=== PATIENT | male | born 1965 | race Caucasian/White ===

== ENCOUNTER 2016-06-17 16:59 | Emergency (ER) | payer OTHER ==
[2016-06-17 17:05] VITALS: BP 125/67; PULSE 55; TEMP 97.8
--- NOTE | 2016-06-17 18:06 | PDOC ---
History of Present Illness - General Chief Complaint: Cold Symptoms Stated Complaint: PAIN Time Seen by Provider: 06/17/16 17:53 History Source: Patient Exam Limitations: No Limitations - History of Present Illness Initial Comments: CHIEF COMPLAINT: 50 y/o afebrile male c/o b/l eye itching and discharge for the past 2 days. HISTORY OF PRESENT ILLNESS: The patient states he has woken up with his eyes stuck shut for the past 2 days with yellow crusting. He also admits to nasal congestion. He denies f/c, n/v/d, CP, SOB, abd pain. The patient has been cleaning his eyes with warm compresses. Vital signs on arrival are within normal limits. REVIEW OF SYSTEMS: GENERAL/CONSTITUTIONAL: No fever/chills. No weakness. No weight change. HEAD, EYES, EARS, NOSE AND THROAT: No change in vision. No ear pain or discharge. No sore throat. +eye itching and yellow discharge. +nasal congestion. GENITOURINARY: No dysuria, frequency, or change in urination. MUSCULOSKELETAL: No joint or muscle swelling or pain. No neck or back pain. SKIN: No rash or easy bruising. PHYSICAL EXAM: GENERAL: The patient is awake, alert, and fully oriented, in no acute distress. He is well appearing, ambulatory. HEAD: Normal with no signs of trauma. ENT: Pupils equal, round and reactive to light, extraocular movements intact, sclera anicteric. Conjunctiva injected b/l. No discharge on lid margins currently. Nasal congestion LUNGS: Clear to auscultation bilaterally. Normal excursion. No respiratory distress or use of accessory muscles. EXTREMITIES: Normal range of motion, no edema. NEUROLOGICAL: Normal speech, normal gait. CN II-XII grossly intact. PSYCH: Normal mood, normal affect. SKIN: Warm, dry, normal turgor, no rashes or lesions noted. Past History - Past Medical History Allergies/Adverse Reactions: Allergies Allergy/AdvReac Type Severity Reaction Status Date / Time No Known Allergies Allergy Verified 06/17/16 17:02 Home Medications: Ambulatory Orders Albuterol Sulfate Inhaler - [Ventolin HFA Inhaler -] 2 inh PO Q4H PRN 01/06/14 Methadone [Dolophine -] 130 mg PO DAILY 01/06/14 Albuterol Sulfate Inhaler - [Ventolin HFA Inhaler -] 2 inh IH Q4H PRN #1 inh Amlodipine Besylate [Norvasc -] 5 mg PO DAILY #30 tablet 02/02/14 Fluoxetine HCl 20 mg PO DAILY #30 tablet 02/02/14 Erythromycin 0.5% Eye Ointment [Erythromycin 0.5% Eye Ointment -] 1 applic OU TID #1 tube 06/17/16 Anemia: No Asthma: No Cancer: No Cardiac Disorders: No CVA: No COPD: No CHF: No Dementia: No Diabetes: No GI Disorders: No Disorders: No HTN: Yes Hypercholesterolemia: No Kidney Stones: No Liver Disease: No Psychiatric Problems: Yes (SCHIZOPHERNIA) Suicide Attempt (Hx): No Seizures: No Thyroid Disease: No - Surgical History Abdominal Surgery: No Appendectomy: No Cardiac Surgery: No Cholecystectomy: No Lung Surgery: No Neurologic Surgery: No Orthopedic Surgery: No - Reproductive History Testicular Surgery: No - Psycho/Social/Smoking Cessation Hx Anxiety: No Suicidal Ideation: No Smoking Status: Yes Smoking History: Never smoked Have you smoked in the past 12 months: No Number of Cigarettes Smoked Daily: 20 Cigars Per Day: 0 Information on smoking cessation initiated: No 'Breaking Loose' booklet given: 01/06/14 Hx Alcohol Use: No Drug/Substance Use Hx: No Substance Use Type: Cocaine, Heroin Hx Substance Use Treatment: No *Physical Exam - Vital Signs Last Vital Signs Temp Pulse Resp BP Pulse Ox 97.8 F 55 L 18 125/67 100 06/17/16 17:03 06/17/16 17:03 06/17/16 17:03 06/17/16 17:03 06/17/16 17:03 Medical Decision Making - Medical Decision Making A/P: 50 y/o afebrile male with b/l conjunctivitis. Will treat with erythromycin ointment. Instructed him to use as prescribed for 1 week. Suggested he take an OTC allergy medicine for his nasal congestion and f/u with his doctor within 1 week. The patient verbalizes understanding of all instructions, has no further questions and is awaiting discharge. *DC/Admit/Observation/Transfer Diagnosis at time of Disposition: Nasal congestion Conjunctivitis Qualifiers: Conjunctivitis type: acute Acute conjunctivitis type: bacterial Laterality: bilateral Qualified Code(s): H10.33 - Unspecified acute conjunctivitis, bilateral - Discharge Dispostion Disposition: HOME Condition at time of disposition: Good - Prescriptions Prescriptions: Erythromycin 0.5% Eye Ointment [Erythromycin 0.5% Eye Ointment -] 1 applic OU TID #1 tube - Referrals Referrals: Donavon Yañez [Primary Care Provider] - Call tomorrow - Patient Instructions Printed Discharge Instructions: DI for Conjunctivitis, DI for Nasal Congestion Additional Instructions: Discharge Instructions: -Use eye ointment as prescribed -Take over the counter allergy medicine for nasal congestion -Sit up to sleep to help with nasal congestion -Follow up with your doctor tomorrow -Return to the ER with any worsening or concerning symptoms. Print Language: VIETNAMESE
== END 2016-06-17 18:13 | disposition home or self-care (01) ==
LOC: JERFT 16:59
DX: H10.33 Unspecified acute conjunctivitis, bilateral (principal); I10 Essential (primary) hypertension; F20.0 Paranoid schizophrenia
CPT/HCPCS: 99281-25

== ENCOUNTER 2017-11-10 11:00 | Inpatient (IN) | payer OTHER ==
[2017-11-10 11:38] VITALS: BMI 24.3
--- NOTE | 2017-11-10 12:59 | HP ---
CIWA Score - CIWA Score Nausea/Vomitin-Mild Nausea/No Vomiting Muscle Tremors: 4-Moderate,w/Arms Extend Anxiety: 4-Mod. Anxious/Guarded Agitation: 4-Moderately Restless Paroxysmal Sweats: 1-Minimal Palms Moist Orientation: 1-Uncertain about Date Tacttile Disturbances: 1-Very Mild Itch/Numbness Auditory Disturbances: 0-None Visual Disturbances: 0-None Headache: 0-None Present CIWA-Ar Total Score: 16 Admission ROS BHS - HPI Chief Complaint: alcohol withdrawal sx Allergies/Adverse Reactions: Allergies Allergy/AdvReac Type Severity Reaction Status Date / Time No Known Allergies Allergy Verified 06/17/16 17:02 History of Present Illness: 52 years old male with long history of alcohol nicotine dependence has hypertension asthma bph methadone 60 mg po riri schizophrenia is admitted to detox Exam Limitations: No Limitations - Ebola screening Have you traveled outside of the country in the last 21 days: No Have you had contact with anyone from an Ebola affected area: No Have you been sick,other than usual withdrawal symptoms: No Do you have a fever: No - Review of Systems Constitutional: Changes in sleep, Weight Stable EENT: reports: Blurred Vision (eye glasses) Respiratory: reports: No Symptoms reported Cardiac: reports: No Symptoms Reported GI: reports: Nausea, Poor Fluid Intake, Abdominal cramping : reports: Frequency Musculoskeletal: reports: No Symptoms Reported Integumentary: reports: Change in Color (chest wall) Neuro: reports: Tremors Endocrine: reports: No Symptoms Reported Hematology: reports: No Symptoms Reported Psychiatric: reports: Judgement Intact, Depressed Other Systems: Reviewed and Negative Patient History - Patient Medical History Hx Anemia: No Hx Asthma: Yes Hx Chronic Obstructive Pulmonary Disease (COPD): No Hx Cancer: No Hx Cardiac Disorders: No Hx Congestive Heart Failure: No Hx Hypertension: Yes (NON COMPLIANT) Hx Hypercholesterolemia: No Hx Pacemaker: No HX Cerebrovascular Accident: No Hx Seizures: No Hx Dementia: No Hx Diabetes: No Hx Gastrointestinal Disorders: No Hx Liver Disease: No Hx Genitourinary Disorders: Yes Hx Sexually Transmitted Disorders: No Hx Renal Disease (ESRD): No Hx Thyroid Disease: No Hx Human Immunodeficiency Virus (HIV): No (negative in november 2013) Hx Hepatitis C: Yes Hx Depression: No Hx Suicide Attempt: No Hx Bipolar Disorder: No Hx Schizophrenia: Yes - Patient Surgical History Past Surgical History: No Hx Neurologic Surgery: No Hx Cataract Extraction: No Hx Cardiac Surgery: No Hx Lung Surgery: No Hx Breast Surgery: No Hx Breast Biopsy: No Hx Abdominal Surgery: No Hx Appendectomy: No Hx Cholecystectomy: No Hx Genitourinary Surgery: No Hx Orthopedic Surgery: No - PPD History Previous Implant?: Yes Documented Results: Negative w/proof Implanted On Prior [facility] Admission?: Yes Date: 02/11/13 Results: 0MM PPD to be Administered?: Yes - Reproductive History Patient : No - Smoking Cessation Smoking history: Current every day smoker Have you smoked in the past 12 months: No Aproximately how many cigarettes per day: 20 Cigars Per Day: 0 Hx Chewing Tobacco Use: No Initiated information on smoking cessation: Yes 'Breaking Loose' booklet given: 11/10/17 - Substance & Tx. History Hx Alcohol Use: Yes Hx Substance Use: Yes Substance Use Type: Alcohol, Opiates Hx Substance Use Treatment: Yes (2012 [facility] - Substances Abused Alcohol Route: Oral Frequency: Daily Amount used: 1PINT VODKA, 6PK Beer Age of first use: 21 Date of Last Use: 11/09/17 Heroin Route: Injection Frequency: 1-3 times last 30 days Amount used: 3 BAGS Age of first use: 29 Date of Last Use: 11/08/17 Family Disease History - Family Disease History Family Disease History: Diabetes: Mother, Heart Disease: Mother, Other: Father ( ) Admission Physical Exam S - Vital Signs Vital Signs: Vital Signs - 24 hr 11/10/17 11:36 Temperature 97 F L Pulse Rate 80 Respiratory 18 Rate Blood Pressure 214/120 - Physical General Appearance: Yes: Appropriately Dressed, Mild Distress, Thin, Tremorous, Irritable, Sweating, Anxious HEENTM: Yes: Hearing grossly Normal, Normocephalic, Normal Voice Respiratory: Yes: Chest Non-Tender, No Respiratory Distress, No Accessory Muscle Use, Wheezing, Expiration Neck: Yes: Supple, Trachea in good position Breast: Yes: Breasts Symetrical, No Discharge Cardiology: Yes: Regular Rhythm, Regular Rate, S1, S2 Abdominal: Yes: Normal Bowel Sounds, Non Tender, Flat Genitourinary: Yes: Within Normal Limits Back: Yes: Normal Inspection Musculoskeletal: Yes: full range of Motion, Gait Steady Extremities: Yes: Normal Inspection, Normal Range of Motion, Non-Tender, Tremors Neurological: Yes: Alert, Motor Strength 5/5, Normal Response, Depressed Affect Integumentary: Yes: Warm, Other (chest wall scratch from fall x days ago) Lymphatic: Yes: Within Normal Limits - Diagnostic (1) Methadone maintenance therapy patient Current Visit: Yes Status: Chronic Comment: 60 mg (2) Asthma Current Visit: Yes Status: Chronic (3) Essential hypertension Current Visit: Yes Status: Chronic (4) Hepatitis C carrier Current Visit: Yes Status: Resolved Comment: treated (5) Nicotine dependence Current Visit: Yes Status: Acute Qualifiers: Nicotine product type: cigarettes Substance use status: in withdrawal Qualified Code(s): F17.213 - Nicotine dependence, cigarettes, with withdrawal (6) Alcohol dependence with uncomplicated withdrawal Current Visit: Yes Status: Acute Cleared for Admission [facility] - Detox or Rehab [facility] Level of Care: Medically Managed Detox Regimen/Protocol: Valium S Breath Alcohol Content Breath Alcohol Content: 0 Urine Drug Screen - Results Drug Screen Negative: No Urine Drug Screen Results: OPI-Opiates, MTD-Methadone
[2017-11-10] MEDS ORDERED: P-EPHED 60MG/TRIPROLIDI 2.5MG TABLET PO PRN (13:00)
[2017-11-10] MEDS ORDERED: IBUPROFEN 400 MG TABLET (FP) PO PRN (13:00)
[2017-11-10] MEDS ORDERED: MENTHOL/PHENOL 1 EACH UD MM PRN (13:00)
[2017-11-10] MEDS ORDERED: MAG HYDROX/AL HYDROX/SIMETH 30 ML UNIT-DOSE CUP PO PRN (13:00)
[2017-11-10] MEDS ORDERED: MAGNESIUM HYDROX 2400MG/30ML ORAL SUSPENSION 30 ML CUP PO PRN (13:00)
[2017-11-10] MEDS ORDERED: LOPERAMIDE HCL 2 MG CAPSULE PO PRN (13:00)
[2017-11-10] MEDS ORDERED: guaiFENesin/D-METHORPHAN HB 10 ML UNIT-DOSE CUPS PO PRN (13:00)
[2017-11-10] MEDS ORDERED: ACETAMINOPHEN 325 MG TABLET (FP) PO PRN (13:00)
[2017-11-10] MEDS ORDERED: MAGNESIUM CITRATE 300 ML BOTTLE PO PRN (13:00)
[2017-11-10] MEDS ORDERED: ALBUTEROL SO4 18 GM HFA INHALER IH PRN (13:02)
[2017-11-10] MEDS ORDERED: BACITRACIN 0.9 GM PACKET TP ONE (13:55)
[2017-11-10] MEDS ORDERED: diazePAM 5 MG TABLET PO ONE (14:00)
[2017-11-10] MEDS: NICOTINE 21 MG/24 HOURS TOPICAL PATCH TD SCH (14:42)
[2017-11-10] MEDS: METOPROLOL TARTRATE 25 MG TABLET (FP) PO SCH (14:42)
[2017-11-10] MEDS: LISINOPRIL 20 MG TABLET (FP) PO SCH (14:42)
[2017-11-10] MEDS: amLODIPine BESYLATE 10 MG TABLET (FP) PO SCH (14:42)
[2017-11-10] MEDS: diazePAM 5 MG TABLET PO PRN (17:18)
[2017-11-10] MEDS: TAMSULOSIN HCL 0.4 MG CAP.ER.24H (FP) PO SCH (17:43)
--- NOTE | 2017-11-10 17:59 | EKG ---
Test Reason : Blood Pressure : / mmHG Vent. Rate : 072 BPM Atrial Rate : 072 BPM P-R Int : 124 ms QRS Dur : 092 ms QT Int : 438 ms P-R-T Axes : 076 051 048 degrees QTc Int : 479 ms NORMAL SINUS RHYTHM POSSIBLE LEFT ATRIAL ENLARGEMENT LEFT VENTRICULAR HYPERTROPHY ABNORMAL ECG NO PREVIOUS ECGS AVAILABLE Confirmed by MD MERE, HENRIETTA ([id number]) on 11/10/2017 5:59:03 PM Referred By: Confirmed By:HENRIETTA SEVERINO MD
[2017-11-10] MEDS ORDERED: MELATONIN 5 MG TABLETS PO PRN (22:00)
[2017-11-10] MEDS: diazePAM 5 MG TABLET PO SCH (22:12)
[2017-11-10] MEDS: THIAMINE HCL 100 MG TABLET (FP) PO SCH (22:12)
[2017-11-11] MEDS: METHADONE 40 MG, METHADONE 20 MG PO SCH (05:54)
[2017-11-11] MEDS ORDERED: METHADONE HCL 10 MG TABLET ONE (05:54)
[2017-11-11] MEDS ORDERED: METHADONE HCL 40 MG DISPERSABLE TABLET ONE (05:54)
[2017-11-11] MEDS: diazePAM 5 MG TABLET PO SCH ×3 (05:55→22:17)
[2017-11-11] MEDS ORDERED: METHADONE HCL 10 MG TABLET PO SCH (06:00)
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
[2017-11-11] MEDS: diazePAM 5 MG TABLET PO PRN ×2 (09:55→17:29)
[2017-11-11] MEDS: LISINOPRIL 20 MG TABLET (FP) PO SCH (10:13)
[2017-11-11] MEDS: NICOTINE 21 MG/24 HOURS TOPICAL PATCH TD SCH (10:14)
[2017-11-11] MEDS: PRENATAL VITAMINS W/ FOLIC ACID TABLET (FP) PO SCH (10:14)
[2017-11-11] MEDS: METOPROLOL TARTRATE 25 MG TABLET (FP) PO SCH (10:14)
[2017-11-11] MEDS: amLODIPine BESYLATE 10 MG TABLET (FP) PO SCH (10:14)
[2017-11-11 10:15] LABS: HEMATOCRIT 39.4 % (35.4-49); MCH 28.6 pg (25.7-33.7); MCHC 33.1 g/dl (32.0-35.9); MEAN CELL VOLUME 86.5 fl (80-96); MEAN PLT VOLUME 9.1 fl (7.5-11.1); PLATELET COUNT 196 K/MM3 (134-434); RBC 4.56 M/mm3 (4.00-5.60); RDW 13.6 % (11.9-15.9); WHITE BLOOD COUNT 5.5 K/mm3 (4.0-10.0)
[2017-11-11] MEDS: NICOTINE POLACRILEX 4 MG GUM BUC PRN (10:15)
[2017-11-11] MEDS: QUEtiapine FUMARATE 50 MG TABLET PO SCH ×2 (10:16→22:17)
[2017-11-11 11:27] LABS: ALBUMIN 4.4 g/dl (3.4-5.0); ANION GAP 6 (8-16); BLOOD UREA NITROGEN 11 mg/dL (7-18); CALCIUM 8.9 mg/dL (8.5-10.1); CHLORIDE 99 mmol/L (98-107); CO2 32 mmol/L (21-32); CREATININE 0.6 mg/dL (0.7-1.3); GLUCOSE,RANDOM 100 mg/dL (74-106); POTASSIUM 4.8 mmol/L (3.5-5.1); SGOT/AST 82 U/L (15-37); SGPT/ALT 91 U/L (12-78); SODIUM 137 mmol/L (136-145)
[2017-11-11 11:29] LABS: ALK PHOS 96 U/L (45-117); BILIRUBIN,TOTAL 0.4 mg/dL (0.2-1.0); TOT PROT 8.3 g/dl (6.4-8.2)
--- NOTE | 2017-11-11 12:22 | PN ---
S CIWA - CIWA Score Nausea/Vomitin Muscle Tremors: 3 Anxiety: 4-Mod. Anxious/Guarded Agitation: 3 Paroxysmal Sweats: 1-Minimal Palms Moist Orientation: 0-Oriented Tacttile Disturbances: 0-None Auditory Disturbances: 0-None Visual Disturbances: 0-None Headache: 0-None Present CIWA-Ar Total Score: 14 BHS Progress Note (SOAP) Subjective: SLIGHT ANXIETY,DIARRHEA.OOB AMBULATING WITH STEADY GAIT. Objective: 11/11/17 12:22 Vital Signs 11/11/17 11/11/17 11/11/17 06:20 06:30 09:23 Temperature 96.9 F L 95.6 F L Pulse Rate 65 82 Respiratory 18 18 18 Rate Blood Pressure 150/83 150/80 Laboratory Tests 11/11/17 11/11/17 11/11/17 06:00 06:00 06:00 WBC 5.5 RBC 4.56 Hgb 13.0 Hct 39.4 MCV 86.5 MCH 28.6 MCHC 33.1 RDW 13.6 Plt Count 196 MPV 9.1 Sodium 137 Potassium 4.8 Chloride 99 Carbon Dioxide 32 Anion Gap 6 L BUN 11 D Creatinine 0.6 L Creat Clearance w eGFR > 60 Random Glucose 100 Calcium 8.9 Total Bilirubin 0.4 D AST 82 H D ALT 91 H D Alkaline Phosphatase 96 Total Protein 8.3 H Albumin 4.4 RPR Titer Nonreactive Assessment: 11/11/17 12:22 WITHDRAWAL SX Plan: CONTINUE DETOX
[2017-11-11 15:37] LABS: URINE APPEARANCE SLCLOUDY; URINE BILIRUBIN NEGATIVE (<2.0 mg/dL); URINE BLOOD NEGATIVE (NEGATIVE); URINE COLOR YELLOW; URINE GLUCOSE (UA) 3+ (NEGATIVE); URINE KETONE NEGATIVE (NEGATIVE); URINE LEUK ESTERASE TRACE (NEGATIVE); URINE NITRITE NEGATIVE (NEGATIVE); URINE PROTEIN NEGATIVE (NEGATIVE)
[2017-11-11 15:42] LABS: CALCIUM OXALATE CRYSTALS MODERATE /hpf (NONE SEEN); URINE MUCUS RARE
[2017-11-11] MEDS: TAMSULOSIN HCL 0.4 MG CAP.ER.24H (FP) PO SCH (17:30)
[2017-11-11] MEDS: THIAMINE HCL 100 MG TABLET (FP) PO SCH (22:17)
[2017-11-12] MEDS ORDERED: METHADONE HCL 10 MG TABLET ONE (04:47)
[2017-11-12] MEDS ORDERED: METHADONE HCL 40 MG DISPERSABLE TABLET ONE (04:47)
[2017-11-12] MEDS: diazePAM 5 MG TABLET PO PRN ×2 (05:11→09:18)
[2017-11-12] MEDS: METHADONE 40 MG, METHADONE 20 MG PO SCH (05:11)
[2017-11-12] MEDS: PRENATAL VITAMINS W/ FOLIC ACID TABLET (FP) PO SCH (10:14)
[2017-11-12] MEDS: METOPROLOL TARTRATE 25 MG TABLET (FP) PO SCH (10:14)
[2017-11-12] MEDS: NICOTINE 21 MG/24 HOURS TOPICAL PATCH TD SCH (10:15)
[2017-11-12] MEDS: LISINOPRIL 20 MG TABLET (FP) PO SCH (10:15)
[2017-11-12] MEDS: amLODIPine BESYLATE 10 MG TABLET (FP) PO SCH (10:15)
[2017-11-12] MEDS: QUEtiapine FUMARATE 50 MG TABLET PO SCH ×2 (10:16→22:30)
[2017-11-12] MEDS: NICOTINE POLACRILEX 4 MG GUM BUC PRN (11:04)
[2017-11-12] MEDS: diazePAM 5 MG TABLET PO SCH ×2 (11:04→22:31)
--- NOTE | 2017-11-12 12:41 | PN ---
[facility] CIWA - CIWA Score Nausea/Vomitin-No Nausea/No Vomiting Muscle Tremors: 3 Anxiety: 4-Mod. Anxious/Guarded Agitation: 3 Paroxysmal Sweats: 1-Minimal Palms Moist Orientation: 0-Oriented Tacttile Disturbances: 0-None Auditory Disturbances: 0-None Visual Disturbances: 0-None Headache: 0-None Present CIWA-Ar Total Score: 11 BHS Progress Note (SOAP) Subjective: SLIGHT ANXIETY. SWEATS,FATIGUE. OOB AMBULATING WITH STEADY GAIT. Objective: 11/12/17 12:40 Vital Signs 11/12/17 11/12/17 06:04 10:11 Temperature 96.7 F L 96.4 F L Pulse Rate 65 73 Respiratory 16 16 Rate Blood Pressure 126/77 128/77 Laboratory Tests 11/10/17 11/11/17 11/11/17 15:00 06:00 06:00 WBC 5.5 RBC 4.56 Hgb 13.0 Hct 39.4 MCV 86.5 MCH 28.6 MCHC 33.1 RDW 13.6 Plt Count 196 MPV 9.1 Sodium 137 Potassium 4.8 Chloride 99 Carbon Dioxide 32 Anion Gap 6 L BUN 11 D Creatinine 0.6 L Creat Clearance w eGFR > 60 Random Glucose 100 Calcium 8.9 Total Bilirubin 0.4 D AST 82 H D ALT 91 H D Alkaline Phosphatase 96 Total Protein 8.3 H Albumin 4.4 Urine Color Urine Appearance Urine pH Ur Specific [place] Urine Protein Urine Glucose (UA) Urine Ketones Urine Blood Urine Nitrite Urine Bilirubin Urine Urobilinogen Ur Leukocyte Esterase Urine WBC (Auto) Urine RBC (Auto) Calcium Oxalate Crystal Urine Mucus RPR Titer HIV 1&2 Antibody Screen Negative HIV P24 Antigen Negative 11/11/17 11/11/17 06:00 11:20 WBC RBC Hgb Hct MCV MCH MCHC RDW Plt Count MPV Sodium Potassium Chloride Carbon Dioxide Anion Gap BUN Creatinine Creat Clearance w eGFR Random Glucose Calcium Total Bilirubin AST ALT Alkaline Phosphatase Total Protein Albumin Urine Color Yellow Urine Appearance Slcloudy Urine pH 6.0 Ur Specific [place] 1.017 Urine Protein Negative Urine Glucose (UA) 3+ H Urine Ketones Negative Urine Blood Negative Urine Nitrite Negative Urine Bilirubin Negative Urine Urobilinogen 2.0 Ur Leukocyte Esterase Trace Urine WBC (Auto) 3 Urine RBC (Auto) 6 Calcium Oxalate Crystal Moderate Urine Mucus Rare RPR Titer Nonreactive HIV 1&2 Antibody Screen HIV P24 Antigen Assessment: 11/12/17 12:40 WITHDRAWAL SX Plan: CONTINUE DETOX INCREASE PO FLUIDS.
[2017-11-12] MEDS: TAMSULOSIN HCL 0.4 MG CAP.ER.24H (FP) PO SCH (17:29)
[2017-11-12] MEDS: THIAMINE HCL 100 MG TABLET (FP) PO SCH (22:30)
[2017-11-13] MEDS ORDERED: METHADONE HCL 10 MG TABLET ONE (03:27)
[2017-11-13] MEDS ORDERED: METHADONE HCL 40 MG DISPERSABLE TABLET ONE (03:27)
[2017-11-13] MEDS: METHADONE 40 MG, METHADONE 20 MG PO SCH (05:40)
[2017-11-13] MEDS: diazePAM 5 MG TABLET PO PRN (05:41)
[2017-11-13] MEDS ORDERED: diazePAM 5 MG TABLET PO SCH (10:00)
[2017-11-13] MEDS: QUEtiapine FUMARATE 50 MG TABLET PO SCH ×2 (10:16→22:28)
[2017-11-13] MEDS: PRENATAL VITAMINS W/ FOLIC ACID TABLET (FP) PO SCH (10:16)
[2017-11-13] MEDS: LISINOPRIL 20 MG TABLET (FP) PO SCH (10:16)
[2017-11-13] MEDS: amLODIPine BESYLATE 10 MG TABLET (FP) PO SCH (10:19)
[2017-11-13] MEDS: NICOTINE 21 MG/24 HOURS TOPICAL PATCH TD SCH (10:19)
[2017-11-13] MEDS: METOPROLOL TARTRATE 25 MG TABLET (FP) PO SCH (13:31)
--- NOTE | 2017-11-13 13:44 | PN ---
S Progress Note (SOAP) Subjective: Fatigue, Anxious. Objective: PATIENT A & O X 2 (UNCERTAIN ABOUT CURRENT DAY / DATE). PATIENT OBSERVED AMBULATING ON UNIT. NO ACUTE DISTRESS. 11/13/17 13:39 Vital Signs Temperature 96.4 F L 11/13/17 09:08 Pulse Rate 73 11/13/17 09:08 Respiratory Rate 18 11/13/17 09:08 Blood Pressure 132/66 11/13/17 09:08 O2 Sat by Pulse Oximetry (%) Laboratory Tests 11/10/17 11/11/17 11/11/17 15:00 06:00 06:00 WBC 5.5 RBC 4.56 Hgb 13.0 Hct 39.4 MCV 86.5 MCH 28.6 MCHC 33.1 RDW 13.6 Plt Count 196 MPV 9.1 Sodium 137 Potassium 4.8 Chloride 99 Carbon Dioxide 32 Anion Gap 6 L BUN 11 D Creatinine 0.6 L Creat Clearance w eGFR > 60 Random Glucose 100 Calcium 8.9 Total Bilirubin 0.4 D AST 82 H D ALT 91 H D Alkaline Phosphatase 96 Total Protein 8.3 H Albumin 4.4 Urine Color Urine Appearance Urine pH Ur Specific [place] Urine Protein Urine Glucose (UA) Urine Ketones Urine Blood Urine Nitrite Urine Bilirubin Urine Urobilinogen Ur Leukocyte Esterase Urine WBC (Auto) Urine RBC (Auto) Calcium Oxalate Crystal Urine Mucus RPR Titer HIV 1&2 Antibody Screen Negative HIV P24 Antigen Negative 11/11/17 11/11/17 06:00 11:20 WBC RBC Hgb Hct MCV MCH MCHC RDW Plt Count MPV Sodium Potassium Chloride Carbon Dioxide Anion Gap BUN Creatinine Creat Clearance w eGFR Random Glucose Calcium Total Bilirubin AST ALT Alkaline Phosphatase Total Protein Albumin Urine Color Yellow Urine Appearance Slcloudy Urine pH 6.0 Ur Specific [place] 1.017 Urine Protein Negative Urine Glucose (UA) 3+ H Urine Ketones Negative Urine Blood Negative Urine Nitrite Negative Urine Bilirubin Negative Urine Urobilinogen 2.0 Ur Leukocyte Esterase Trace Urine WBC (Auto) 3 Urine RBC (Auto) 6 Calcium Oxalate Crystal Moderate Urine Mucus Rare RPR Titer Nonreactive HIV 1&2 Antibody Screen HIV P24 Antigen LABS NOTED. Assessment: 11/13/17 13:41 WITHDRAWAL SYMPTOMS. Plan: CONTINUE DETOX. INCREASE DAILY PO FLUID INTAKE. PATIENT SCHEDULED FOR D/C TOMORROW. PATIENT REQUESTING TO GO TO [facility] ([facility] PENDING BED AVAILABILITY AT THAT TIME.
[2017-11-13] MEDS ORDERED: chlordiazePOXIDE HCL 10 MG CAPSULE PO SCH (17:00)
[2017-11-13] MEDS: TAMSULOSIN HCL 0.4 MG CAP.ER.24H (FP) PO SCH (17:36)
[2017-11-13] MEDS: THIAMINE HCL 100 MG TABLET (FP) PO SCH (22:28)
[2017-11-14] MEDS ORDERED: METHADONE HCL 10 MG TABLET ONE (04:42)
[2017-11-14] MEDS ORDERED: METHADONE HCL 40 MG DISPERSABLE TABLET ONE (04:43)
[2017-11-14] MEDS: METHADONE 40 MG, METHADONE 20 MG PO SCH (05:22)
[2017-11-14 06:17] VITALS: BP 119/65; PULSE 57; TEMP 96.1
[2017-11-14] MEDS ORDERED: diazePAM 5 MG TABLET PO SCH (10:00)
--- NOTE | 2017-11-14 18:00 | PN ---
BHS Progress Note (SOAP) Subjective: Patient denies current Detox symptoms and reports that he feels well overall. Objective: PATIENT A & O X 3, OBSERVED AMBULATING ON UNIT. NO ACUTE DISTRESS. 11/14/17 17:59 Vital Signs Temperature 96.1 F L 11/14/17 06:17 Pulse Rate 57 L 11/14/17 06:17 Respiratory Rate 18 11/14/17 06:17 Blood Pressure 119/65 11/14/17 06:17 O2 Sat by Pulse Oximetry (%) Laboratory Tests 11/10/17 11/11/17 11/11/17 15:00 06:00 06:00 WBC 5.5 RBC 4.56 Hgb 13.0 Hct 39.4 MCV 86.5 MCH 28.6 MCHC 33.1 RDW 13.6 Plt Count 196 MPV 9.1 Sodium 137 Potassium 4.8 Chloride 99 Carbon Dioxide 32 Anion Gap 6 L BUN 11 D Creatinine 0.6 L Creat Clearance w eGFR > 60 Random Glucose 100 Calcium 8.9 Total Bilirubin 0.4 D AST 82 H D ALT 91 H D Alkaline Phosphatase 96 Total Protein 8.3 H Albumin 4.4 Urine Color Urine Appearance Urine pH Ur Specific [place] Urine Protein Urine Glucose (UA) Urine Ketones Urine Blood Urine Nitrite Urine Bilirubin Urine Urobilinogen Ur Leukocyte Esterase Urine WBC (Auto) Urine RBC (Auto) Calcium Oxalate Crystal Urine Mucus RPR Titer HIV 1&2 Antibody Screen Negative HIV P24 Antigen Negative 11/11/17 11/11/17 06:00 11:20 WBC RBC Hgb Hct MCV MCH MCHC RDW Plt Count MPV Sodium Potassium Chloride Carbon Dioxide Anion Gap BUN Creatinine Creat Clearance w eGFR Random Glucose Calcium Total Bilirubin AST ALT Alkaline Phosphatase Total Protein Albumin Urine Color Yellow Urine Appearance Slcloudy Urine pH 6.0 Ur Specific [place] 1.017 Urine Protein Negative Urine Glucose (UA) 3+ H Urine Ketones Negative Urine Blood Negative Urine Nitrite Negative Urine Bilirubin Negative Urine Urobilinogen 2.0 Ur Leukocyte Esterase Trace Urine WBC (Auto) 3 Urine RBC (Auto) 6 Calcium Oxalate Crystal Moderate Urine Mucus Rare RPR Titer Nonreactive HIV 1&2 Antibody Screen HIV P24 Antigen LABS NOTED. Assessment: 11/14/17 17:59 COMPLETION OF DETOX REGIMEN. Plan: PATIENT SCHEDULED FOR DISCHARGE FROM DETOX UNIT TODAY.
--- NOTE | 2017-11-14 18:04 | DS ---
[facility] Detox Discharge Summary Admission Date: 11/10/17 Discharge Date: 11/14/17 - History Present History: Alcohol Dependence, Opioid Dependence, MMTP Additional Comments: NO BEDS ARE AVAILABLE AT [facility] AT THIS TIME, PATIENT WILL GO HOME FOR TIME BEING, THEN WILL CONTACT [facility] ADMISSIONS DEPT. ON 11/16/2017 IN AM TO INQUIRE ABOUT ADMISSION AT THAT TIME. PATIENT WAS DISCHARGED FROM DETOX UNIT IN STABLE MEDICAL CONDITION. Pertinent Past History: Asthma, Hep C, MMTP, Depression, Nicotine Dependence. - Physical Exam Results Vital Signs: Vital Signs Temperature 96.1 F L 11/14/17 06:17 Pulse Rate 57 L 11/14/17 06:17 Respiratory Rate 18 11/14/17 06:17 Blood Pressure 119/65 11/14/17 06:17 O2 Sat by Pulse Oximetry (%) Pertinent Admission Physical Exam Findings: WITHDRAWAL SYMPTOMS. Laboratory Tests 11/10/17 11/11/17 11/11/17 15:00 06:00 06:00 WBC 5.5 RBC 4.56 Hgb 13.0 Hct 39.4 MCV 86.5 MCH 28.6 MCHC 33.1 RDW 13.6 Plt Count 196 MPV 9.1 Sodium 137 Potassium 4.8 Chloride 99 Carbon Dioxide 32 Anion Gap 6 L BUN 11 D Creatinine 0.6 L Creat Clearance w eGFR > 60 Random Glucose 100 Calcium 8.9 Total Bilirubin 0.4 D AST 82 H D ALT 91 H D Alkaline Phosphatase 96 Total Protein 8.3 H Albumin 4.4 Urine Color Urine Appearance Urine pH Ur Specific [place] Urine Protein Urine Glucose (UA) Urine Ketones Urine Blood Urine Nitrite Urine Bilirubin Urine Urobilinogen Ur Leukocyte Esterase Urine WBC (Auto) Urine RBC (Auto) Calcium Oxalate Crystal Urine Mucus RPR Titer HIV 1&2 Antibody Screen Negative HIV P24 Antigen Negative 11/11/17 11/11/17 06:00 11:20 WBC RBC Hgb Hct MCV MCH MCHC RDW Plt Count MPV Sodium Potassium Chloride Carbon Dioxide Anion Gap BUN Creatinine Creat Clearance w eGFR Random Glucose Calcium Total Bilirubin AST ALT Alkaline Phosphatase Total Protein Albumin Urine Color Yellow Urine Appearance Slcloudy Urine pH 6.0 Ur Specific [place] 1.017 Urine Protein Negative Urine Glucose (UA) 3+ H Urine Ketones Negative Urine Blood Negative Urine Nitrite Negative Urine Bilirubin Negative Urine Urobilinogen 2.0 Ur Leukocyte Esterase Trace Urine WBC (Auto) 3 Urine RBC (Auto) 6 Calcium Oxalate Crystal Moderate Urine Mucus Rare RPR Titer Nonreactive HIV 1&2 Antibody Screen HIV P24 Antigen LABS NOTED. - Treatment Hospital Course: Detox Protocol Followed, Detoxed Safely, Responded well, Discharged Condition Good, Rehab Referral Accepted Patient has Accepted a Rehab Referral to: [facility] (Jamar ALY.Ria) . - Medication Discharge Medications: Ambulatory Orders Albuterol Sulfate Inhaler - [Ventolin HFA Inhaler -] 2 inh PO Q4H PRN 01/06/14 Amlodipine Besylate [Norvasc -] 10 mg PO DAILY 11/10/17 Fluoxetine HCl 10 mg PO BID 11/10/17 Lisinopril [Prinivil -] 40 mg PO DAILY 11/10/17 Metoprolol Tartrate 25 mg PO DAILY 11/10/17 Quetiapine Fumarate [Seroquel -] 50 mg PO BID 11/10/17 Tamsulosin HCl [Flomax] 0.4 mg PO DAILY 11/10/17 - Diagnosis (1) Alcohol dependence with uncomplicated withdrawal Status: Acute (2) Nicotine dependence Status: Acute Qualifiers: Nicotine product type: cigarettes Substance use status: in withdrawal Qualified Code(s): F17.213 - Nicotine dependence, cigarettes, with withdrawal (3) Asthma Status: Chronic (4) Essential hypertension Status: Chronic (5) Methadone maintenance therapy patient Status: Chronic (6) Hepatitis C carrier Status: Resolved (7) MDD (major depressive disorder) Status: Chronic Qualifiers: Major depression recurrence: recurrent Active/Remission status: remission status unspecified Qualified Code(s): F33.9 - Major depressive disorder, recurrent, unspecified - AMA Did Patient Leave Against Medical Advice: No
== END 2017-11-14 08:45 | disposition home or self-care (01) | DRG 773 ==
LOC: YASAS 11:00 → Y3N 13:40
PROVIDERS: ADMIT Surgery; ATTEND Surgery
PROC: HZ2ZZZZ Detoxification Services for Substance Abuse Treatment (ICD-10-PCS; principal; 2017-11-10)
DX: F10.230 Alcohol dependence with withdrawal, uncomplicated (principal); F11.20 Opioid dependence, uncomplicated; F17.213 Nicotine dependence, cigarettes, with withdrawal; F33.9 Major depressive disorder, recurrent, unspecified; I10 Essential (primary) hypertension; J45.909 Unspecified asthma, uncomplicated; B18.2 Chronic viral hepatitis C; Z91.14 Patient's other noncompliance with medication regimen
CPT/HCPCS: 36415; 80053; 81003; 81015; 85027; 86593; 87389; 93005; 93010

== ENCOUNTER 2017-12-10 19:52 | Observation (INO) | payer OTHER ==
--- NOTE | 2017-12-10 20:05 | PDOC ---
Rapid Medical Evaluation Chief Complaint: Psychiatric Time Seen by Provider: 12/10/17 19:58 Medical Evaluation: Allergies Allergy/AdvReac Type Severity Reaction Status Date / Time No Known Allergies Allergy Verified 06/17/16 17:02 history of schizophrenia currently not on medication for 6 days. last admission psych facility 11/28/17 today patient feeling homicidal for 7 days. " i want to kill everybody." had methodone today at [address] denies drug use today PMHX: schizophrenia, BPH, HTN PE: patient alert no eye contact/ A: psychiatric problem P: 1: 1 patient to the ER for further management. labs EKG Discharge Disposition - Diagnosis Homicidal ideation Schizophrenia Qualifiers: Schizophrenia type: unspecified Qualified Code(s): F20.9 - Schizophrenia, unspecified - Referrals - Patient Instructions - Post Discharge Activity
[2017-12-10 20:41] LABS: BASO % 0.7 % (0-2.0); EOS % 4.4 % (0-4.5); HEMATOCRIT 40.1 % (35.4-49); HEMOGLOBIN 13.2 GM/dL (11.7-16.9); LYMPH % 38.6 % (8-40); MEAN PLT VOLUME 8.3 fl (7.5-11.1); MONO % 11.3 % (3.8-10.2); PLATELET COUNT 209 K/MM3 (134-434); RBC 4.72 M/mm3 (4.00-5.60); RDW 13.9 % (11.9-15.9); URINE APPEARANCE CLEAR; URINE BILIRUBIN NEGATIVE (<2.0 mg/dL); URINE COLOR STRAW; URINE GLUCOSE (UA) 1+ (NEGATIVE); URINE KETONE NEGATIVE (NEGATIVE); URINE LEUK ESTERASE NEGATIVE (NEGATIVE); URINE NITRITE NEGATIVE (NEGATIVE); URINE PROTEIN NEGATIVE (NEGATIVE); URINE UROBILINOGEN NEGATIVE mg/dL (0.2-1.0); WHITE BLOOD COUNT 6.6 K/mm3 (4.0-10.0)
[2017-12-10 20:59] LABS: INR 0.88 (0.82-1.09)
[2017-12-10 21:06] LABS: EPI CELLS RARE /HPF (FEW); URINE MUCUS RARE
[2017-12-10 21:13] LABS: ALBUMIN 4.1 g/dl (3.4-5.0); ANION GAP 7 (8-16); BILIRUBIN,TOTAL 0.3 mg/dL (0.2-1.0); BLOOD UREA NITROGEN 13 mg/dL (7-18); CALCIUM 8.7 mg/dL (8.5-10.1); CHLORIDE 107 mmol/L (98-107); CO2 29 mmol/L (21-32); CREATININE 0.8 mg/dL (0.7-1.3); GLUCOSE,RANDOM 89 mg/dL (74-106); POTASSIUM 4.4 mmol/L (3.5-5.1); SGOT/AST 34 U/L (15-37); SGPT/ALT 36 U/L (12-78); SODIUM 143 mmol/L (136-145); TOT PROT 7.9 g/dl (6.4-8.2)
[2017-12-10 21:14] LABS: ALK PHOS 94 U/L (45-117)
--- NOTE | 2017-12-10 21:26 | PDOC ---
Attending Attestation - [facility] HPI: 12/10/17 22:04 The patient is a 52 year old male, with a significant past medical history of schizophrenia, BPH and HTN, who presents to the ED complaining of homicidal ideations for the past 7 days. He reports that he wants to "kill everybody". He notes that he has not taking his schizophrenia medication for the past 6 days because he ran out. He notes that he had methadone today at [address] [place] [address]. He denies any other kind of drug use. On presentation the patient reports that he wants to be mentally stable and notes that he no longer wants to hurt himself or others. He denies having any kind of plan for hurting himself or others. The patient denies chest pain, shortness of breath, headache and dizziness. Denies fever, chills, nausea, vomiting, diarrhea or constipation. Allergies: NOne Past surgical history: None reported Social History: Cocaine use. Heroin use. Cigarette use (20 daily) - Physicial Exam PE: 12/10/17 22:04 Constitutional: Awake, alert, oriented. No acute distress. Head: Normocephalic. Atraumatic Eyes: PERRL. EOMI. Conjunctivae are not pale. ENT: Mucous membranes are moist and intact. Posterior pharynx without exudates or erythema. Uvula midline. Neck: Supple. Full ROM. No lymphadenopathy. Cardiovascular: Regular rate. Regular rhythm. S1, S2 regular. Distal pulses are 2+ and symmetric. Pulmonary/Chest: No evidence of respiratory distress. Clear to auscultation bilaterally No wheezing, rales or rhonchi. Abdominal: Soft and non-distended. There is no tenderness. No rebound, guarding or rigidity. No organomegaly. No palpable masses. Good bowel sounds. Back: No CVA tenderness. Musculoskeletal: No edema. No cyanosis. No clubbing. Full range of motion in all extremities. Nocalf tenderness. Radial/pedal pulses are intact and 2+ bilaterally Skin: Skin is warm and dry. No petechiae. No purpura. Neurological: Alert and oriented to person, place, and time. Cranial nerves II -XII are grossly intact. Normal speech. Strength is grossly symmetric. No sensory deficits. Psychiatric: Good eye contact. Normal interaction, affect and behavior. <Jordan Washington - Last Filed: 12/10/17 22:17> - Resident Resident Name: Jens Garcia - ED Attending Attestation I have performed the following: I have examined & evaluated the patient, The case was reviewed & discussed with the resident, I agree w/resident's findings & plan, Exceptions are as noted - Medical Decision Making 12/10/17 21:26 I, Dr. Aby Eaton, DO, attest that this document has been prepared under my direction and personally reviewed by me in its entirety. I further attest, that it accurately reflects all work, treatment, procedures and medical decision -making performed by me. 12/10/17 22:51 a/p: 52yo male with hx of schizophrenia and depression/clostrophobia presents for eval of SI/HI -pt has not been compliant with meds -supposed to take seroquel 50bid -has been out of meds x 7 days -no somatic complaints -c/o intermittent episodes of SI/HI - plan for HI to hurt people by stabbing them and then chopping them up -call palced to dr. phillips -labs ordered -will monitor and reassess -pt not aggressive, resting comfortably -will restart seroquel 12/11/17 00:25 labs reviewed etoh today will place in obs pending psych eval 12/11/17 01:[address] Flores who accepts pt to obs pending psych eval <Aby Eaton - Last Filed: 12/11/17 01:11> Discharge Disposition - Discharge Dispostion Last Admission D/C Date: 11/14/17 Decision to Admit order: Yes <Aby Eaton - Last Filed: 12/11/17 01:11> - Diagnosis Homicidal ideation Schizophrenia Qualifiers: Schizophrenia type: unspecified Qualified Code(s): F20.9 - Schizophrenia, unspecified - Discharge Dispostion Condition at time of disposition: Fair - Referrals - Patient Instructions - Post Discharge Activity Work/School Note: My Personal Safety Plan Heart Score/ECG Review - ECG Intrepretation Comment:: 12/10/17 22:30 sinus at 86, nl axis, nl intervla, lvh, no acute st/t wave findings <Aby Eaton - Last Filed: 12/11/17 01:11>
--- NOTE | 2017-12-10 22:18 | PDOC ---
History of Present Illness - General Chief Complaint: Suicidal Stated Complaint: SUICIDAL Time Seen by Provider: 12/10/17 19:58 History Source: Patient Exam Limitations: Language Barrier (Keyboard Instrument Repairer [id number]) - History of Present Illness Initial Comments: 12/10/17 22:04 The patient is a 52M with a PMH of schizophrenia, HTN, and depression who presents to the ER with complaints of HI. The patient states that for the past 3 days, he's been feeling and hearing voices that tell him to stab "the whole world" and cut them into pieces. He does not state that this is a attack on anyone in particular. He denies visual hallucinations, CP, SOB, fever, chills, nausea, vomiting. Past History - Past Medical History Allergies/Adverse Reactions: Allergies Allergy/AdvReac Type Severity Reaction Status Date / Time No Known Allergies Allergy Verified 06/17/16 17:02 Home Medications: Ambulatory Orders Albuterol Sulfate Inhaler - [Ventolin HFA Inhaler -] 2 inh PO Q4H PRN 01/06/14 Amlodipine Besylate [Norvasc -] 10 mg PO DAILY 11/10/17 Fluoxetine HCl 10 mg PO BID 11/10/17 Lisinopril [Prinivil -] 40 mg PO DAILY 11/10/17 Metoprolol Tartrate 25 mg PO DAILY 11/10/17 Quetiapine Fumarate [Seroquel -] 50 mg PO BID 11/10/17 Tamsulosin HCl [Flomax] 0.4 mg PO DAILY 11/10/17 Anemia: No Asthma: Yes Cancer: No Cardiac Disorders: No CVA: No COPD: No CHF: No DVT: No Dementia: No Diabetes: No GI Disorders: No Disorders: Yes HTN: Yes (NON COMPLIANT) Hypercholesterolemia: No Kidney Stones: No Liver Disease: No Psychiatric Problems: Yes (schitzophrenia , methodone) Seizures: No Thyroid Disease: No - Surgical History Abdominal Surgery: No Appendectomy: No Cardiac Surgery: No Cholecystectomy: No Lung Surgery: No Neurologic Surgery: No Orthopedic Surgery: No - Reproductive History Testicular Surgery: No - Suicide/Smoking/Psychosocial Hx Smoking Status: Yes Smoking History: Former smoker Have you smoked in the past 12 months: Yes Number of Cigarettes Smoked Daily: 20 If you are a former smoker, when did you quit?: t-60 Cigars Per Day: 0 Information on smoking cessation initiated: No 'Breaking Loose' booklet given: 11/10/17 Hx Alcohol Use: No Drug/Substance Use Hx: Yes (methadone program) Substance Use Type: Alcohol, Opiates Hx Substance Use Treatment: Yes (2012 [facility]) Review of Systems - Review of Systems Able to Perform ROS?: Yes (Limited 2/2 clinical cond) Constitutional: No: Chills, Fever HEENTM: No: Blurred Vision Respiratory: No: Cough, Shortness of Breath Cardiac (ROS): No: Chest Pain, Palpitations ABD/GI: No: Nausea, Vomiting : No: Burning, Dysuria Neurological: No: Headache, Numbness, Tingling, Weakness Psychiatric: Yes: Stressors, Other (auditory hallucinations, HI) *Physical Exam - Vital Signs Last Vital Signs Temp Pulse Resp BP Pulse Ox 98.7 F 92 H 20 143/97 98 12/10/17 20:03 12/10/17 20:03 12/10/17 20:03 12/10/17 20:03 12/10/17 20:03 - Physical Exam Comments: 12/10/17 22:45 GENERAL: Well developed, well nourished. Awake and alert. Agitated. HEENT: Normocephalic, atraumatic. Hearing grossly normal. Moist mucous membranes. PERRLA, EOMI. No conjunctival pallor. Sclera are non-icteric. NECK: Supple. Full ROM. No JVD. CARDIOVASCULAR: Regular rate and rhythm. No murmurs, rubs, or gallops. PULMONARY: No evidence of respiratory distress. Lungs clear to auscultation bilaterally. No wheezing, rales or rhonchi. ABDOMINAL: Soft. Non-tender. Non-distended. No rebound or guarding. MUSCULOSKELETAL: Normal range of motion at all joints. No bony deformities or tenderness. EXTREMITIES: No cyanosis. No clubbing. No edema. No calf tenderness or swelling. SKIN: Warm and dry. Normal capillary refill. No rashes. No jaundice. NEUROLOGICAL: Alert, awake, appropriate. Cranial nerves 2-12 intact. Normal speech. Gait is normal without ataxia. PSYCHIATRIC: Cooperative. Poor eye contact. Fidgity. Heart Score/ECG Review #1 General ECG Interpretation: Sinus Rhythm, Normal Rate, Normal Intervals, No acute ischemic changes Compared to previous ECG there are: No significant change 12/10/17 22:58 NSR Vent rate 86 [place] 140 QRS 82 QTc 473 No STD or LAKEISHA noted No signs of acute ischemia ED Treatment Course - LABORATORY CBC & Chemistry Diagram: 12/10/17 20:15 12/10/17 20:15 - ADDITIONAL ORDERS Additional order review: Laboratory Results 12/10/17 12/10/17 12/10/17 20:15 20:15 20:15 PT with INR INR Sodium 143 Potassium 4.4 Chloride 107 Carbon Dioxide 29 Anion Gap 7 L BUN 13 Creatinine 0.8 Creat Clearance w eGFR > 60 Random Glucose 89 Calcium 8.7 Total Bilirubin 0.3 AST 34 D ALT 36 D Alkaline Phosphatase 94 Total Protein 7.9 Albumin 4.1 Urine Color Straw Urine Appearance Clear Urine pH 5.0 Ur Specific [place] 1.013 Urine Protein Negative Urine Glucose (UA) 1+ H Urine Ketones Negative Urine Blood 2+ H Urine Nitrite Negative Urine Bilirubin Negative Urine Urobilinogen Negative Ur Leukocyte Esterase Negative Urine WBC (Auto) <1 Urine RBC (Auto) <1 Ur Epithelial Cells Rare Urine Mucus Rare Acetaminophen < amr Alcohol, Quantitative 192.92 H* 12/10/17 20:15 PT with INR 10.00 INR 0.88 Sodium Potassium Chloride Carbon Dioxide Anion Gap BUN Creatinine Creat Clearance w eGFR Random Glucose Calcium Total Bilirubin AST ALT Alkaline Phosphatase Total Protein Albumin Urine Color Urine Appearance Urine pH Ur Specific [place] Urine Protein Urine Glucose (UA) Urine Ketones Urine Blood Urine Nitrite Urine Bilirubin Urine Urobilinogen Ur Leukocyte Esterase Urine WBC (Auto) Urine RBC (Auto) Ur Epithelial Cells Urine Mucus Acetaminophen Alcohol, Quantitative 12/10/17 20:15 RBC 4.72 MCV 85.0 MCHC 33.0 RDW 13.9 MPV 8.3 Neutrophils % 45.0 Lymphocytes % 38.6 Monocytes % 11.3 H Eosinophils % 4.4 Basophils % 0.7 Medical Decision Making - Medical Decision Making 12/10/17 23:03 The patient is 52M with a PMH of schizophrenia and HTN who presents to the ER with HI. Labs WNL. Pending UA and Utox. Will d/w psych and admit for psych placement. Pt has 1:1 placement. 12/11/17 00:05 Pt signed out to attending for sign out for obs. *DC/Admit/Observation/Transfer Diagnosis at time of Disposition: Homicidal ideation Schizophrenia Qualifiers: Schizophrenia type: unspecified Qualified Code(s): F20.9 - Schizophrenia, unspecified - Referrals - Patient Instructions - Post Discharge Activity Forms/Work/School Notes: My Personal Safety Plan
[2017-12-10 22:20] LABS: SALICYLATE <1.7 mg/dL
[2017-12-10] MEDS ORDERED: FLUoxetine HCL 10 MG CAPSULE (FP) PO ONE (22:21)
[2017-12-10] MEDS ORDERED: QUEtiapine FUMARATE 50 MG TABLET PO ONE (22:22)
[2017-12-10 22:30] LABS: ACETAMINOPHEN <2.0 ug/mL
[2017-12-10] MEDS ORDERED: QUEtiapine FUMARATE 25 MG TABLET (FP) ONE (22:48)
[2017-12-10 23:12] LABS: COCAINE, UR NEGATIVE ng/ml (CUTOFF=300); PHENCYCLIDINE,URINE NEGATIVE ng/ml (CUTOFF=25); URINE AMPHETAMINES NEGATIVE ng/ml (CUTOFF=500); URINE BARBITURATES NEGATIVE ng/ml (CUTOFF=200); URINE BENZODIAZEPINES NEGATIVE ng/ml (CUTOFF=200)
[2017-12-10 23:14] LABS: OPIATES, URI POSITIVE ng/ml (CUTOFF=300)
[2017-12-10 23:16] LABS: METHADONE, UR POSITIVE ng/ml (CUTOFF=300)
[2017-12-11] MEDS ORDERED: LISINOPRIL 20 MG TABLET (FP) PO ONE (01:54)
[2017-12-11] MEDS ORDERED: METOPROLOL TARTRATE 25 MG TABLET (FP) PO ONE (01:54)
[2017-12-11] MEDS ORDERED: amLODIPine BESYLATE 10 MG TABLET (FP) PO ONE (01:55)
[2017-12-11] MEDS ORDERED: amLODIPine BESYLATE 5 MG TABLET (FP) ONE (01:56)
[2017-12-11] MEDS ORDERED: METOPROLOL TARTRATE 25 MG TABLET (FP) ONE (01:56)
[2017-12-11] MEDS ORDERED: LISINOPRIL 20 MG TABLET (FP) ONE (01:56)
--- NOTE | 2017-12-11 03:22 | PN ---
Teaching Attending Note Name of Resident: Arnold Flores ATTENDING PHYSICIAN STATEMENT I saw and evaluated the patient. I reviewed the resident's note and discussed the case with the resident. I agree with the resident's findings and plan as documented. SUBJECTIVE: Patient is a 52 year old man with a history of schizophrenia, HTN, and depression who presents to the ER with complaints of HI. The patient states that for the past 3 days, he's been feeling and hearing voices that tell him to stab "the whole world" and cut them into pieces. He does not state that this is a attack on anyone in particular. He denies visual hallucinations, CP, SOB, fever, chills, nausea, vomiting. OBJECTIVE: Alert and in no acute distress Vital Signs Period Temp Pulse Resp BP Sys/Somers Pulse Ox Last 24 Hr 97.6 F-98.7 F 67-92 14-20 143-191/97-116 97-98 HEENT: No Jaundice, eye redness or discharge, PERRLA, EOMI. Normocephalic, atraumatic. External ears are normal and hearing is grossly intact. No nasal discharge. Neck: Supple, nontender. No palpable adenopathy or thyromegaly. No JVD Chest: Good effort. Clear to auscultation and percussion. Heart: Regular. No S3, rub or murmur Abdomen: Not distended, soft, nontender and no HSM. No rebound or guarding. Normoactive bowel sounds. Ext: Peripheral pulses intact. No leg edema. Skin: Warm and dry. No petechiae, rash or ecchymosis. Neuro: Alert. Oriented x3. CN 2-12 grossly intact. Sensation grossly intact in all four extremities and DTR are symmetric. Psych: Poor insight and flat affect. Mood is fair. Homicidal ideation. Home Medications Medication Instructions Recorded Albuterol Sulfate Inhaler - 2 inh PO Q4H PRN 01/06/14 [Ventolin HFA Inhaler -] Amlodipine Besylate [Norvasc -] 10 mg PO DAILY 11/10/17 Fluoxetine HCl 10 mg PO BID 11/10/17 Lisinopril [Prinivil -] 40 mg PO DAILY 11/10/17 Metoprolol Tartrate 25 mg PO DAILY 11/10/17 Quetiapine Fumarate [Seroquel -] 50 mg PO BID 11/10/17 Tamsulosin HCl [Flomax] 0.4 mg PO DAILY 11/10/17 Abnormal Lab Results 12/10/17 12/10/17 12/10/17 20:15 20:15 20:15 Monocytes % 11.3 H Anion Gap 7 L Urine Glucose (UA) 1+ H Urine Blood 2+ H Alcohol, Quantitative 12/10/17 20:15 Monocytes % Anion Gap Urine Glucose (UA) Urine Blood Alcohol, Quantitative 192.92 H* ASSESSMENT AND PLAN: 1. Schizophrenia - Will monitor him one-to-one while awaiting psychiatry evaluation. Resume his home medications. 2. Alcohol intoxication - Monitor for alcohol withdrawal. Place on [employer] Librium protocol. Check Mg and Phosp[place]ate. 3. Hematuria - Unexplained. No urinary symptoms. Repeat UA and consult urology if hematuria persists. 4. DVT prophylaxis - Lovenox 40 mg SQ q 24 hours. 5. Advance directives - Full code
[2017-12-11] MEDS ORDERED: ALBUTEROL SO4 8 GM HFA INHALER IH PRN (04:45)
[2017-12-11 05:05] VITALS: BMI 24.7
--- NOTE | 2017-12-11 06:21 | HP ---
<Arnold Flores - Last Filed: 12/11/17 06:15> CHIEF COMPLAINT: "wanting to kill everyone" PCP: none HISTORY OF PRESENT ILLNESS: Pt is a 52 y/o M with PMH chizophrenia, BPH, HTN who was brought to the ED stating he wants to kill everyone. Did not have a plan at my interview. Pt has been off his meds for 1 week because he ran out. He got methadone yest. ED spoke with Dr. Lion who advised keeping the pt on obs until he can see the pt today. ER course was notable for: (1) labs unremarkable (2) ekg w/ ? LVH (3) pt on 1:1 Recent Travel: denies PAST MEDICAL HISTORY: as above PAST SURGICAL HISTORY: Social History: Smoking: Alcohol: Drugs: Family History: Allergies No Known Allergies Allergy (Verified 06/17/16 17:02) HOME MEDICATIONS: Home Medications Medication Instructions Recorded Albuterol Sulfate Inhaler - 2 inh PO Q4H PRN 01/06/14 [Ventolin HFA Inhaler -] Amlodipine Besylate [Norvasc -] 10 mg PO DAILY 11/10/17 Fluoxetine HCl 10 mg PO BID 11/10/17 Lisinopril [Prinivil -] 40 mg PO DAILY 11/10/17 Metoprolol Tartrate 25 mg PO DAILY 11/10/17 Quetiapine Fumarate [Seroquel -] 50 mg PO BID 11/10/17 Tamsulosin HCl [Flomax] 0.4 mg PO DAILY 11/10/17 REVIEW OF SYSTEMS CONSTITUTIONAL: Absent: fever, chills, diaphoresis, generalized weakness, malaise, loss of appetite, weight change HEENT: Absent: rhinorrhea, nasal congestion, throat pain, throat swelling, difficulty swallowing, mouth swelling, ear pain, eye pain, visual changes CARDIOVASCULAR: Absent: chest pain, syncope, palpitations, irregular heart rate, lightheadedness , peripheral edema RESPIRATORY: Absent: cough, shortness of breath, dyspnea with exertion, orthopnea, wheezing, stridor, hemoptysis GASTROINTESTINAL: Absent: abdominal pain, abdominal distension, nausea, vomiting, diarrhea, constipation, melena, hematochezia GENITOURINARY: Absent: dysuria, frequency, urgency, hesitancy, hematuria, flank pain, genital pain MUSCULOSKELETAL: Absent: myalgia, arthralgia, joint swelling, back pain, neck pain SKIN: Absent: rash, itching, pallor HEMATOLOGIC/IMMUNOLOGIC: Absent: easy bleeding, easy bruising, lymphadenopathy, frequent infections ENDOCRINE: Absent: unexplained weight gain, unexplained weight loss, heat intolerance, cold intolerance NEUROLOGIC: Absent: headache, focal weakness or paresthesias, dizziness, unsteady gait, seizure, mental status changes, bladder or bowel incontinence PSYCHIATRIC: Absent: anxiety, depression, suicidal or homicidal ideation, hallucinations. PHYSICAL EXAMINATION Vital Signs - 24 hr 12/10/17 12/11/17 12/11/17 20:03 01:50 02:55 Temperature 98.7 F 97.6 F Pulse Rate 92 H Pulse Rate [ 90 67 Brachial] Respiratory 20 14 14 Rate Blood Pressure 143/97 Blood Pressure 191/116 180/100 [Right Arm] O2 Sat by Pulse 98 98 97 Oximetry (%) 12/11/17 04:15 Temperature 98 F Pulse Rate 64 Pulse Rate [ Brachial] Respiratory 20 Rate Blood Pressure 130/70 Blood Pressure [Right Arm] O2 Sat by Pulse Oximetry (%) Gen: NAD HEENT: NCAT Neck: supple no jvd Cardio: rrr, ns1s2, no mrg Pulm: CTA b/l Abd: soft nontender ext: no edema 2+ pules Laboratory Results - last 24 hr 12/10/17 12/10/17 12/10/17 20:15 20:15 20:15 WBC 6.6 RBC 4.72 Hgb 13.2 Hct 40.1 MCV 85.0 MCH 28.0 MCHC 33.0 RDW 13.9 Plt Count 209 MPV 8.3 Absolute Neuts (auto) 3.0 Neutrophils % 45.0 Lymphocytes % 38.6 Monocytes % 11.3 H Eosinophils % 4.4 Basophils % 0.7 Nucleated RBC % 0 PT with INR 10.00 INR 0.88 Sodium Potassium Chloride Carbon Dioxide Anion Gap BUN Creatinine Creat Clearance w eGFR Random Glucose Calcium Total Bilirubin AST ALT Alkaline Phosphatase Total Protein Albumin Urine Color Straw Urine Appearance Clear Urine pH 5.0 Ur Specific [place] 1.013 Urine Protein Negative Urine Glucose (UA) 1+ H Urine Ketones Negative Urine Blood 2+ H Urine Nitrite Negative Urine Bilirubin Negative Urine Urobilinogen Negative Ur Leukocyte Esterase Negative Urine WBC (Auto) <1 Urine RBC (Auto) <1 Ur Epithelial Cells Rare Urine Mucus Rare Salicylates Opiates Screen Methadone Screen Acetaminophen Barbiturate Screen Phencyclidine Screen Ur Amphetamines Screen MDMA (Ecstasy) Screen Benzodiazepines Screen Cocaine Screen U Marijuana (THC) Screen Alcohol, Quantitative 12/10/17 12/10/17 12/10/17 20:15 20:15 20:15 WBC RBC Hgb Hct MCV MCH MCHC RDW Plt Count MPV Absolute Neuts (auto) Neutrophils % Lymphocytes % Monocytes % Eosinophils % Basophils % Nucleated RBC % PT with INR INR Sodium 143 Potassium 4.4 Chloride 107 Carbon Dioxide 29 Anion Gap 7 L BUN 13 Creatinine 0.8 Creat Clearance w eGFR > 60 Random Glucose 89 Calcium 8.7 Total Bilirubin 0.3 AST 34 D ALT 36 D Alkaline Phosphatase 94 Total Protein 7.9 Albumin 4.1 Urine Color Urine Appearance Urine pH Ur Specific [place] Urine Protein Urine Glucose (UA) Urine Ketones Urine Blood Urine Nitrite Urine Bilirubin Urine Urobilinogen Ur Leukocyte Esterase Urine WBC (Auto) Urine RBC (Auto) Ur Epithelial Cells Urine Mucus Salicylates <1.7 Opiates Screen Positive Methadone Screen Positive Acetaminophen <2.0 Barbiturate Screen Negative Phencyclidine Screen Negative Ur Amphetamines Screen Negative MDMA (Ecstasy) Screen Negative Benzodiazepines Screen Negative Cocaine Screen Negative U Marijuana (THC) Screen Negative Alcohol, Quantitative 192.92 H* ASSESSMENT/PLAN: Pt is a 52 y/o M with PMH chizophrenia, BPH, HTN who was brought to the ED stating he wants to kill everyone. Pt on obs for psych. #Schizophrenia -Pt homicidal in ED -pending psych eval #HTN -cont home meds #BPH -cont home meds #FEN -no fluids -lytes wnl -reg diet #PPx -Hep sub Q #Dispo -Obs Arnold Flores MD PGY-2 IM Visit type - Emergency Visit Emergency Visit: Yes ED Registration Date: 12/11/17 Care time: The patient presented to the Emergency Department on the above date and was hospitalized for further evaluation of their emergent condition. - New Patient This patient is new to me today: Yes Date on this admission: 12/11/17 - Critical Care Critical Care patient: No Hospitalist Screening - Colonoscopy Questionnaire Colonoscopy Questionnaire: Colonoscopy Questionnaire - Patient: 50 - 75 years old and never had a screening colonoscopy: Unknown History of colon or rectal polyps, or CA: Unknown History of IBD, Crohn's disease or UC: Unknown History of abdominal radiation therapy as a child: Unknown - Relative: 1 with colon or rectal CA, or polyps at age 60 or younger: Unknown Colon or rectal CA diagnosed at age 45 or younger: Unknown Multiple relatives with colon or rectal CA: Unknown - Outcome: Screening Result: Negative Screen <Lester Walker - Last Filed: 12/11/17 17:40> CHIEF COMPLAINT: PCP: HISTORY OF PRESENT ILLNESS: ER course was notable for: (1) (2) (3) Recent Travel: PAST MEDICAL HISTORY: PAST SURGICAL HISTORY: Social History: Smoking: Alcohol: Drugs: Family History: Allergies No Known Allergies Allergy (Verified 06/17/16 17:02) HOME MEDICATIONS: Home Medications Medication Instructions Recorded Albuterol Sulfate Inhaler - 2 inh PO Q4H PRN 01/06/14 [Ventolin HFA Inhaler -] Amlodipine Besylate [Norvasc -] 10 mg PO DAILY 11/10/17 Fluoxetine HCl 10 mg PO BID 11/10/17 Lisinopril [Prinivil -] 40 mg PO DAILY 11/10/17 Metoprolol Tartrate 25 mg PO DAILY 11/10/17 Quetiapine Fumarate [Seroquel -] 50 mg PO BID 11/10/17 Tamsulosin HCl [Flomax] 0.4 mg PO DAILY 11/10/17 REVIEW OF SYSTEMS CONSTITUTIONAL: Absent: fever, chills, diaphoresis, generalized weakness, malaise, loss of appetite, weight change HEENT: Absent: rhinorrhea, nasal congestion, throat pain, throat swelling, difficulty swallowing, mouth swelling, ear pain, eye pain, visual changes CARDIOVASCULAR: Absent: chest pain, syncope, palpitations, irregular heart rate, lightheadedness , peripheral edema RESPIRATORY: Absent: cough, shortness of breath, dyspnea with exertion, orthopnea, wheezing, stridor, hemoptysis GASTROINTESTINAL: Absent: abdominal pain, abdominal distension, nausea, vomiting, diarrhea, constipation, melena, hematochezia GENITOURINARY: Absent: dysuria, frequency, urgency, hesitancy, hematuria, flank pain, genital pain MUSCULOSKELETAL: Absent: myalgia, arthralgia, joint swelling, back pain, neck pain SKIN: Absent: rash, itching, pallor HEMATOLOGIC/IMMUNOLOGIC: Absent: easy bleeding, easy bruising, lymphadenopathy, frequent infections ENDOCRINE: Absent: unexplained weight gain, unexplained weight loss, heat intolerance, cold intolerance NEUROLOGIC: Absent: headache, focal weakness or paresthesias, dizziness, unsteady gait, seizure, mental status changes, bladder or bowel incontinence PSYCHIATRIC: Absent: anxiety, depression, suicidal or homicidal ideation, hallucinations. PHYSICAL EXAMINATION Vital Signs - 24 hr 12/10/17 12/11/17 12/11/17 20:03 01:50 02:55 Temperature 98.7 F 97.6 F Pulse Rate 92 H Pulse Rate [ 90 67 Brachial] Respiratory 20 14 14 Rate Blood Pressure 143/97 Blood Pressure 191/116 180/100 [Right Arm] O2 Sat by Pulse 98 98 97 Oximetry (%) 12/11/17 12/11/17 12/11/17 04:15 10:05 14:00 Temperature 98 F 97.9 F 97.9 F Pulse Rate 64 66 63 Pulse Rate [ Brachial] Respiratory 20 18 17 Rate Blood Pressure 130/70 180/93 120/66 Blood Pressure [Right Arm] O2 Sat by Pulse Oximetry (%) GENERAL: Awake, alert, and fully oriented, in no acute distress. HEAD: Normal with no signs of trauma. EYES: Pupils equal, round and reactive to light, extraocular movements intact, sclera anicteric, conjunctiva clear. No lid lag. EARS, NOSE, THROAT: Ears normal, nares patent, oropharynx clear without exudates. Moist mucous membranes. NECK: Normal range of motion, supple without lymphadenopathy, JVD, or masses. LUNGS: Breath sounds equal, clear to auscultation bilaterally. No wheezes, and no crackles. No accessory muscle use. HEART: Regular rate and rhythm, normal S1 and S2 without murmur, rub or gallop. ABDOMEN: Soft, nontender, not distended, normoactive bowel sounds, no guarding, no rebound, no masses. No hepatomegaly or splenomegaly. MUSCULOSKELETAL: Normal range of motion at all joints. No bony deformities or tenderness. No CVA tenderness. UPPER EXTREMITIES: 2+ pulses, warm, well-perfused. No cyanosis. No clubbing. No peripheral edema. LOWER EXTREMITIES: 2+ pulses, warm, well-perfused. No calf tenderness. No peripheral edema. NEUROLOGICAL: Cranial nerves II-XII intact. Normal speech. Normal gait. PSYCHIATRIC: Cooperative. Good eye contact. Appropriate mood and affect. SKIN: Warm, dry, normal turgor, no rashes or lesions noted, normal capillary refill. Laboratory Results - last 24 hr 12/10/17 12/10/17 12/10/17 20:15 20:15 20:15 WBC 6.6 RBC 4.72 Hgb 13.2 Hct 40.1 MCV 85.0 MCH 28.0 MCHC 33.0 RDW 13.9 Plt Count 209 MPV 8.3 Absolute Neuts (auto) 3.0 Neutrophils % 45.0 Lymphocytes % 38.6 Monocytes % 11.3 H Eosinophils % 4.4 Basophils % 0.7 Nucleated RBC % 0 PT with INR 10.00 INR 0.88 Sodium Potassium Chloride Carbon Dioxide Anion Gap BUN Creatinine Creat Clearance w eGFR Random Glucose Calcium Total Bilirubin AST ALT Alkaline Phosphatase Total Protein Albumin Urine Color Straw Urine Appearance Clear Urine pH 5.0 Ur Specific [place] 1.013 Urine Protein Negative Urine Glucose (UA) 1+ H Urine Ketones Negative Urine Blood 2+ H Urine Nitrite Negative Urine Bilirubin Negative Urine Urobilinogen Negative Ur Leukocyte Esterase Negative Urine WBC (Auto) <1 Urine RBC (Auto) <1 Ur Epithelial Cells Rare Urine Mucus Rare Salicylates Opiates Screen Methadone Screen Acetaminophen Barbiturate Screen Phencyclidine Screen Ur Amphetamines Screen MDMA (Ecstasy) Screen Benzodiazepines Screen Cocaine Screen U Marijuana (THC) Screen Alcohol, Quantitative 12/10/17 12/10/17 12/10/17 20:15 20:15 20:15 WBC RBC Hgb Hct MCV MCH MCHC RDW Plt Count MPV Absolute Neuts (auto) Neutrophils % Lymphocytes % Monocytes % Eosinophils % Basophils % Nucleated RBC % PT with INR INR Sodium 143 Potassium 4.4 Chloride 107 Carbon Dioxide 29 Anion Gap 7 L BUN 13 Creatinine 0.8 Creat Clearance w eGFR > 60 Random Glucose 89 Calcium 8.7 Total Bilirubin 0.3 AST 34 D ALT 36 D Alkaline Phosphatase 94 Total Protein 7.9 Albumin 4.1 Urine Color Urine Appearance Urine pH Ur Specific [place] Urine Protein Urine Glucose (UA) Urine Ketones Urine Blood Urine Nitrite Urine Bilirubin Urine Urobilinogen Ur Leukocyte Esterase Urine WBC (Auto) Urine RBC (Auto) Ur Epithelial Cells Urine Mucus Salicylates <1.7 Opiates Screen Positive Methadone Screen Positive Acetaminophen <2.0 Barbiturate Screen Negative Phencyclidine Screen Negative Ur Amphetamines Screen Negative MDMA (Ecstasy) Screen Negative Benzodiazepines Screen Negative Cocaine Screen Negative U Marijuana (THC) Screen Negative Alcohol, Quantitative 192.92 H* ASSESSMENT/PLAN: Hospitalist Screening - Colonoscopy Questionnaire Colonoscopy Questionnaire: Colonoscopy Questionnaire
[2017-12-11] MEDS: HEPARIN NA (PORCINE) 5,000 UNITS/ML 1ML VIAL SQ SCH ×2 (06:38→13:45)
--- NOTE | 2017-12-11 07:57 | PN ---
Physical Exam: SUBJECTIVE: Patient seen and examined at the bedside. Awake, alert an oriented x 3 OBJECTIVE: Denies any homicidal or suicidal ideation. Calm and cooperative. No signs of acute alcohol withdrawal on exam Vital Signs Period Temp Pulse Resp BP Sys/Somers Pulse Ox Last 24 Hr 97.6 F-98.7 F 64-92 14-20 130-191/70-116 97-98 GENERAL: The patient is awake, alert, and fully oriented, in no acute distress. HEAD: Normal with no signs of trauma. EYES: PERRL, extraocular movements intact, sclera anicteric, conjunctiva clear. No ptosis. ENT: Ears normal, nares patent, oropharynx clear without exudates, moist mucous membranes. NECK: Trachea midline, full range of motion, supple. LUNGS: Breath sounds equal, clear to auscultation bilaterally HEART: Regular rate and rhythm, S1, S2 without murmur, rub or gallop. ABDOMEN: Soft, nontender, nondistended, normoactive bowel sounds, no guarding, no rebound, no hepatosplenomegaly, no masses. EXTREMITIES: no edema. NEUROLOGICAL: Normal speech, gait not observed. PSYCH: Normal mood, normal affect. SKIN: Warm, dry, normal turgor, no rashes or lesions noted Laboratory Results - last 24 hr 12/10/17 12/10/17 12/10/17 20:15 20:15 20:15 WBC 6.6 RBC 4.72 Hgb 13.2 Hct 40.1 MCV 85.0 MCH 28.0 MCHC 33.0 RDW 13.9 Plt Count 209 MPV 8.3 Absolute Neuts (auto) 3.0 Neutrophils % 45.0 Lymphocytes % 38.6 Monocytes % 11.3 H Eosinophils % 4.4 Basophils % 0.7 Nucleated RBC % 0 PT with INR 10.00 INR 0.88 Sodium Potassium Chloride Carbon Dioxide Anion Gap BUN Creatinine Creat Clearance w eGFR Random Glucose Calcium Total Bilirubin AST ALT Alkaline Phosphatase Total Protein Albumin Urine Color Straw Urine Appearance Clear Urine pH 5.0 Ur Specific [place] 1.013 Urine Protein Negative Urine Glucose (UA) 1+ H Urine Ketones Negative Urine Blood 2+ H Urine Nitrite Negative Urine Bilirubin Negative Urine Urobilinogen Negative Ur Leukocyte Esterase Negative Urine WBC (Auto) <1 Urine RBC (Auto) <1 Ur Epithelial Cells Rare Urine Mucus Rare Salicylates Opiates Screen Methadone Screen Acetaminophen Barbiturate Screen Phencyclidine Screen Ur Amphetamines Screen MDMA (Ecstasy) Screen Benzodiazepines Screen Cocaine Screen U Marijuana (THC) Screen Alcohol, Quantitative 12/10/17 12/10/17 12/10/17 20:15 20:15 20:15 WBC RBC Hgb Hct MCV MCH MCHC RDW Plt Count MPV Absolute Neuts (auto) Neutrophils % Lymphocytes % Monocytes % Eosinophils % Basophils % Nucleated RBC % PT with INR INR Sodium 143 Potassium 4.4 Chloride 107 Carbon Dioxide 29 Anion Gap 7 L BUN 13 Creatinine 0.8 Creat Clearance w eGFR > 60 Random Glucose 89 Calcium 8.7 Total Bilirubin 0.3 AST 34 D ALT 36 D Alkaline Phosphatase 94 Total Protein 7.9 Albumin 4.1 Urine Color Urine Appearance Urine pH Ur Specific [place] Urine Protein Urine Glucose (UA) Urine Ketones Urine Blood Urine Nitrite Urine Bilirubin Urine Urobilinogen Ur Leukocyte Esterase Urine WBC (Auto) Urine RBC (Auto) Ur Epithelial Cells Urine Mucus Salicylates <1.7 Opiates Screen Positive Methadone Screen Positive Acetaminophen <2.0 Barbiturate Screen Negative Phencyclidine Screen Negative Ur Amphetamines Screen Negative MDMA (Ecstasy) Screen Negative Benzodiazepines Screen Negative Cocaine Screen Negative U Marijuana (THC) Screen Negative Alcohol, Quantitative 192.92 H* Active Medications Generic Name Dose Route Start Last Admin Trade Name Freq PRN Reason Stop Dose Admin Albuterol Sulfate 2 puff 12/11/17 04:45 Ventolin Hfa Inhaler - IH Q4H PRN SHORT OF BREATH/WHEEZING Amlodipine Besylate 10 mg 12/11/17 10:00 Norvasc - PO DAILY [facility] Fluoxetine HCl 10 mg 12/11/17 10:00 Prozac - PO BID [facility] Heparin Sodium (Porcine) 5,000 unit 12/11/17 06:00 12/11/17 06:38 Heparin - SQ 5,000 unit TID [facility] Administration Lisinopril 40 mg 12/11/17 10:00 Prinivil PO DAILY [facility] Methadone HCl 60 mg 12/11/17 08:00 Dolophine - PO DAILY@0600 [facility] Metoprolol Tartrate 25 mg 12/11/17 10:00 Lopressor - PO DAILY [facility] Quetiapine Fumarate 50 mg 12/11/17 10:00 Seroquel - PO BID [facility] Tamsulosin HCl 0.4 mg 12/11/17 08:30 Flomax - PO DAILY@0830 [facility] ASSESSMENT/PLAN: Patient is a 52 year old male, with a significant past medical history of schizophrenia, BPH and HTN, who presents to the ED complaining of homicidal ideation for the past 7 days. On admission he reportedly wanted to "kill everyone". He states he has not been taking his anti psyche medications because he ran out. His ETOH levels were elevated on admission, but he has no signs of any acute alcohol withdrawal, is calm and cooperative. He is on methadone from [address] [place] [address]. On presentation the patient reports that he no longer is having these thoughts, is calm cooperative and states he no longer wants to hurt himself or others. He He appears to be remorseful over what he stated. He denies having any kind of plan for hurting himself or others. Psyche: Schizophrenia: no longer homicidal/suicidal. Cleared for discharge by psyche. Medications called into his pharmacy. Card: Hypertension: elevated this am. but improved with cardiac medications. Cardiac medications called into pharmacy and patient is to follow up with the clinic at [address] [place] [address] to recheck BP.
[2017-12-11] MEDS ORDERED: METHADONE HCL 40 MG DISPERSABLE TABLET PO SCH (08:00)
[2017-12-11] MEDS ORDERED: METHADONE 40 MG, METHADONE 20 MG PO SCH (08:00)
[2017-12-11] MEDS ORDERED: TAMSULOSIN HCL 0.4 MG CAP.ER.24H (FP) PO SCH (08:30)
--- NOTE | 2017-12-11 09:25 | EKG ---
Test Reason : Blood Pressure : / mmHG Vent. Rate : 086 BPM Atrial Rate : 086 BPM P-R Int : 140 ms QRS Dur : 082 ms QT Int : 396 ms P-R-T Axes : 017 019 022 degrees QTc Int : 473 ms NORMAL SINUS RHYTHM WHEN COMPARED WITH ECG OF 10-NOV-2017 13:54, NO SIGNIFICANT CHANGE WAS FOUND Confirmed by PADMA BAILEY MD ([id number]) on 12/11/2017 9:24:55 AM Referred By: Confirmed By:PADMA BAILEY MD
[2017-12-11] MEDS ORDERED: FLUoxetine HCL 10 MG CAPSULE (FP) PO SCH (10:00)
[2017-12-11] MEDS ORDERED: METOPROLOL TARTRATE 25 MG TABLET (FP) PO SCH (10:00)
[2017-12-11] MEDS ORDERED: amLODIPine BESYLATE 10 MG TABLET (FP) PO SCH (10:00)
[2017-12-11] MEDS ORDERED: QUEtiapine FUMARATE 25 MG TABLET (FP) PO SCH (10:00)
[2017-12-11] MEDS ORDERED: LISINOPRIL 20 MG TABLET (FP) PO SCH (10:00)
[2017-12-11] MEDS ORDERED: PT OWN MED DRAWER 7, Y5N ONE (10:10)
[2017-12-11 12:10] VITALS: TEMP 97.9
[2017-12-11 14:27] VITALS: BP 120/66; PULSE 63
--- NOTE | 2017-12-11 17:41 | CON.PSY ---
Psychiatry Consult Chief Complaint: 52 year old male with a history of SCizophrenia and methadone maintnance. Patient apparantly reported that he was having Homicidal thoughts. 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 - Previous Psychiatric Treatment Outpatient: Less than 6 mos ago Inpatient: 2 or more prior admissions - Previous Substance Abuse Treatment Outpatient: Less than 6 mos ago - Reason for Previous Treatment Reason for Previous Treatment: Drug Abuse - Current Medications Current Medications: Active Medications Albuterol Sulfate (Ventolin Hfa Inhaler -) 2 puff IH Q4H PRN PRN Reason: SHORT OF BREATH/WHEEZING Amlodipine Besylate (Norvasc -) 10 mg PO DAILY [facility] Last Admin: 12/11/17 10:11 Dose: 10 mg Fluoxetine HCl (Prozac -) 10 mg PO BID [facility] Last Admin: 12/11/17 10:12 Dose: 10 mg Heparin Sodium (Porcine) (Heparin -) 5,000 unit SQ TID [facility] Last Admin: 12/11/17 13:45 Dose: 5,000 unit Lisinopril (Prinivil) 40 mg PO DAILY [facility] Last Admin: 12/11/17 10:12 Dose: 40 mg Methadone HCl 40 mg/ Methadone (HCl 20 mg) 60 mg PO DAILY@0600 [facility] Last Admin: 12/11/17 09:00 Dose: 60 mg Metoprolol Tartrate (Lopressor -) 25 mg PO DAILY [facility] Last Admin: 12/11/17 10:11 Dose: 25 mg Quetiapine Fumarate (Seroquel -) 50 mg PO BID [facility] Last Admin: 12/11/17 10:12 Dose: 50 mg Tamsulosin HCl (Flomax -) 0.4 mg PO DAILY@0830 [facility] Last Admin: 12/11/17 09:26 Dose: 0.4 mg - Allergies Allergies: Allergies Allergy/AdvReac Type Severity Reaction Status Date / Time No Known Allergies Allergy Verified 06/17/16 17:02 - Current Living Status Usual Living Arrangement: With Spouse - Current Mental Status Evaluation Appearance: Well Groomed Attitude: Cooperative - Affect Affect: Constrictive Appropriateness: Appropriate to Content - Mood Mood: Euthymic - Speech/Language Expressive: Coherent - Psychomotor Activity Psychomotor Activity: Normal - Thought Process Thought Process: Intact - Thought Content Hallucinations: Absent Delusions: Absent - Self Perception Self Perception: No Impairment - Cognition Attention: Alert Orientation: Time Memory, Immediate Recall: Intact Memory, Short Term: 2/3 Memory, Remote with Promptin/3 - Concentration Serial Sevens Intact: No Simple Calculations Intact: Yes - Abstraction Proverb Interpretation: Intact Judgement: Minimally Impaired - Insight Insight: Intact - Impulse Control Impulse Control: Minimally Impaired - Suicidal Ideation Suicidal Ideation: No - Homicidal Ideation Homicidal Ideation: No Assessment/Plan 1) P{atient is not suicidal or Homicidal at this time. 2) discharge home when medically stable. 3) continue with [facility] Psych meds. 4) folpow up at Mental health clinic in [facility].
--- NOTE | 2017-12-11 17:56 | DS ---
Physical Exam: SUBJECTIVE: Patient seen and examined OBJECTIVE: Vital Signs Period Temp Pulse Resp BP Sys/Somers Pulse Ox Last 24 Hr 97.6 F-98.7 F 63-92 14-20 120-191/66-116 97-98 PHYSICAL EXAM GENERAL: The patient is awake, alert, and fully oriented, in no acute distress. HEAD: Normal with no signs of trauma. EYES: PERRL, extraocular movements intact, sclera anicteric, conjunctiva clear. ENT: Ears normal, nares patent, oropharynx clear without exudates, moist mucous membranes. NECK: Trachea midline, full range of motion, supple. LUNGS: Breath sounds equal, clear to auscultation bilaterally, no wheezes, no crackles, no accessory muscle use. HEART: Regular rate and rhythm, S1, S2 without murmur, rub or gallop. ABDOMEN: Soft, nontender, nondistended, normoactive bowel sounds, no guarding, no rebound, no hepatosplenomegaly, no masses. EXTREMITIES: 2+ pulses, warm, well-perfused, no edema. NEUROLOGICAL: Cranial nerves II through XII grossly intact. Normal speech, gait not observed. PSYCH: Normal mood, normal affect. SKIN: Warm, dry, normal turgor, no rashes or lesions noted. LABS Laboratory Results - last 24 hr 12/10/17 12/10/17 12/10/17 20:15 20:15 20:15 WBC 6.6 RBC 4.72 Hgb 13.2 Hct 40.1 MCV 85.0 MCH 28.0 MCHC 33.0 RDW 13.9 Plt Count 209 MPV 8.3 Absolute Neuts (auto) 3.0 Neutrophils % 45.0 Lymphocytes % 38.6 Monocytes % 11.3 H Eosinophils % 4.4 Basophils % 0.7 Nucleated RBC % 0 PT with INR 10.00 INR 0.88 Sodium Potassium Chloride Carbon Dioxide Anion Gap BUN Creatinine Creat Clearance w eGFR Random Glucose Calcium Total Bilirubin AST ALT Alkaline Phosphatase Total Protein Albumin Urine Color Straw Urine Appearance Clear Urine pH 5.0 Ur Specific [place] 1.013 Urine Protein Negative Urine Glucose (UA) 1+ H Urine Ketones Negative Urine Blood 2+ H Urine Nitrite Negative Urine Bilirubin Negative Urine Urobilinogen Negative Ur Leukocyte Esterase Negative Urine WBC (Auto) <1 Urine RBC (Auto) <1 Ur Epithelial Cells Rare Urine Mucus Rare Salicylates Opiates Screen Methadone Screen Acetaminophen Barbiturate Screen Phencyclidine Screen Ur Amphetamines Screen MDMA (Ecstasy) Screen Benzodiazepines Screen Cocaine Screen U Marijuana (THC) Screen Alcohol, Quantitative 12/10/17 12/10/17 12/10/17 20:15 20:15 20:15 WBC RBC Hgb Hct MCV MCH MCHC RDW Plt Count MPV Absolute Neuts (auto) Neutrophils % Lymphocytes % Monocytes % Eosinophils % Basophils % Nucleated RBC % PT with INR INR Sodium 143 Potassium 4.4 Chloride 107 Carbon Dioxide 29 Anion Gap 7 L BUN 13 Creatinine 0.8 Creat Clearance w eGFR > 60 Random Glucose 89 Calcium 8.7 Total Bilirubin 0.3 AST 34 D ALT 36 D Alkaline Phosphatase 94 Total Protein 7.9 Albumin 4.1 Urine Color Urine Appearance Urine pH Ur Specific [place] Urine Protein Urine Glucose (UA) Urine Ketones Urine Blood Urine Nitrite Urine Bilirubin Urine Urobilinogen Ur Leukocyte Esterase Urine WBC (Auto) Urine RBC (Auto) Ur Epithelial Cells Urine Mucus Salicylates <1.7 Opiates Screen Positive Methadone Screen Positive Acetaminophen <2.0 Barbiturate Screen Negative Phencyclidine Screen Negative Ur Amphetamines Screen Negative MDMA (Ecstasy) Screen Negative Benzodiazepines Screen Negative Cocaine Screen Negative U Marijuana (THC) Screen Negative Alcohol, Quantitative 192.92 H* HOSPITAL COURSE: Date of Admission:12/11/17 Date of Discharge: 12/11/17 Discharge Summary Reason For Visit: HOMICIDAL IDEATION SCHIZOPHRENIA Current Active Problems Homicidal ideation (Acute) Schizophrenia (Acute) Condition: Fair - Instructions Diet, Activity, Other Instructions: Mr. Preet Small: Please follow up with the mental health clinic in [place]. Please have your blood pressure rechecked at [address] [place] [address] and continue taking your blood pressure medications. All your medications have been called to your pharmacy. Please return to the ER if your symptoms persist. Disposition: HOME - Home Medications Comprehensive Discharge Medication List: Ambulatory Orders Albuterol Sulfate Inhaler - [Ventolin HFA Inhaler -] 2 inh PO Q4H PRN 01/06/14 Fluoxetine HCl 10 mg PO BID 11/10/17 Lisinopril [Prinivil -] 40 mg PO DAILY 11/10/17 Quetiapine Fumarate [Seroquel -] 50 mg PO BID 11/10/17 Amlodipine Besylate [Norvasc -] 10 mg PO DAILY #30 tablet 12/11/17 Fluoxetine HCl [Prozac -] 10 mg PO BID #60 capsule 12/11/17 Lisinopril [Prinivil] 40 mg PO DAILY #60 tablet 12/11/17 Metoprolol Tartrate 25 mg PO DAILY #30 tablet 12/11/17 Quetiapine Fumarate [Seroquel -] 50 mg PO BID #120 tablet 12/11/17 Tamsulosin HCl [Flomax -] 0.4 mg PO DAILY #30 cap.er.24h 12/11/17
[2017-12-11 18:37] LABS: URINE APPEARANCE CLEAR; URINE BILIRUBIN NEGATIVE (<2.0 mg/dL); URINE COLOR YELLOW; URINE GLUCOSE (UA) NEGATIVE (NEGATIVE); URINE KETONE NEGATIVE (NEGATIVE); URINE LEUK ESTERASE TRACE (NEGATIVE); URINE NITRITE NEGATIVE (NEGATIVE); URINE PROTEIN NEGATIVE (NEGATIVE)
[2017-12-11 18:57] LABS: URINE MUCUS RARE
== END 2017-12-11 19:57 | disposition home or self-care (01) ==
LOC: JER 19:52 → JERBED 12-11 00:19 → UNDOADMOB 12-11 01:26 → J8W 12-11 03:18
PROVIDERS: ADMIT Internal Medicine; ATTEND Nurse Practitioner Family
PROC: 3E013GC Introduction of Other Therapeutic Substance into Subcutaneous Tissue, Percutaneous Approach (ICD-10-PCS; principal; 2017-12-11)
DX: R45.850 Homicidal ideations (principal); I10 Essential (primary) hypertension; F20.9 Schizophrenia, unspecified; N40.0 Benign prostatic hyperplasia without lower urinary tract symptoms; Z91.14 Patient's other noncompliance with medication regimen; Z87.891 Personal history of nicotine dependence; F10.129 Alcohol abuse with intoxication, unspecified; R31.9 Hematuria, unspecified
CPT/HCPCS: 36415; 80053; 80307; 81003; 81015; 85025; 85610; 93005; 93010; 96372; 99284-25; G0378; J1644

== ENCOUNTER 2022-12-10 08:16 | Inpatient (IN) | payer OTHER ==
[2022-12-10 08:44] VITALS: BMI 25.4
[2022-12-10] MEDS ORDERED: cloNIDine HCL 0.1 MG TABLET ONE (08:51)
[2022-12-10] MEDS ORDERED: ALBUTEROL SO4 HFA INHALER IH PRN (08:56)
[2022-12-10] MEDS ORDERED: cloNIDine HCL 0.1 MG TABLET PO ONE (09:00)
[2022-12-10] MEDS ORDERED: BISMUTH SUBSALICYLATE 524 MG/30 ML PO PRN (09:01)
[2022-12-10] MEDS ORDERED: P-EPHED 60MG/TRIPROLIDI 2.5MG TABLET PO PRN (09:01)
[2022-12-10] MEDS ORDERED: ACETAMINOPHEN 325 MG TABLET (FP) PO PRN (09:01)
[2022-12-10] MEDS ORDERED: ONDANSETRON *ODT* 4 MG TABLET SL PRN (09:01)
[2022-12-10] MEDS ORDERED: POLYETHYLENE GLYCOL (HEALTHYLAX) 3350 17 GM PACKET PO PRN (09:01)
[2022-12-10] MEDS ORDERED: METHOCARBAMOL 500 MG TABLET PO PRN (09:01)
[2022-12-10] MEDS ORDERED: NALOXONE HCL 0.4 MG/ML VIAL IM PRN (09:01)
[2022-12-10] MEDS ORDERED: IBUPROFEN 600 MG TABLET (FP) PO PRN (09:01)
[2022-12-10] MEDS ORDERED: BENZONATATE 200 MG CAPSULE PO PRN (09:01)
[2022-12-10] MEDS ORDERED: MAGNESIUM HYDROX 2400MG/30ML ORAL SUSPENSION 30 ML CUP PO PRN (09:01)
[2022-12-10] MEDS ORDERED: LOPERAMIDE HCL 2 MG CAPSULE PO PRN (09:01)
[2022-12-10] MEDS ORDERED: guaiFENesin 600 MG TABLET.ER (FP) PO PRN (09:01)
[2022-12-10] MEDS ORDERED: DICYCLOMINE HCL 10 MG CAPSULE PO PRN (09:01)
[2022-12-10] MEDS ORDERED: BENZOCAINE/MENTHOL (CHLORASEPTIC ) LOZENGE MM PRN (09:01)
[2022-12-10] MEDS ORDERED: hydrOXYzine PAMOATE 25 MG CAPSULE (FP) PO PRN (09:01)
[2022-12-10] MEDS ORDERED: MAG HYDROX/AL HYDROX/SIMETH 30 ML UNIT-DOSE CUP PO PRN (09:01)
[2022-12-10] MEDS ORDERED: NALOXONE HCL (KLOXXADO) 8 MG SPRAY NS PRN (09:01)
[2022-12-10] MEDS ORDERED: NICOTINE POLACRILEX 2 MG GUM BUC PRN (09:01)
[2022-12-10] MEDS ORDERED: IBUPROFEN 400 MG TABLET (FP) PO PRN (09:01)
[2022-12-10] MEDS ORDERED: amLODIPine BESYLATE 5 MG TABLET (FP) ONE (09:49)
[2022-12-10] MEDS ORDERED: PRENATAL VITAMINS W/ FOLIC ACID TABLET (FP) PO ONE (09:50)
[2022-12-10] MEDS: PRENATAL VITAMINS W/ FOLIC ACID TABLET (FP) PO SCH (09:56)
[2022-12-10] MEDS ORDERED: amLODIPine BESYLATE 5 MG TABLET (FP) PO ONE (10:00)
[2022-12-10] MEDS ORDERED: methaDONE HCL 10 MG TABLET PO SCH (13:30)
[2022-12-10] MEDS: MELATONIN 5 MG TABLETS PO SCH (22:14)
[2022-12-10] MEDS: METOPROLOL TARTRATE 25 MG TABLET (FP) PO SCH (22:14)
[2022-12-10] MEDS: THIAMINE HCL 100 MG TABLET (FP) PO SCH (22:14)
[2022-12-10] MEDS: diazePAM 5 MG TABLET PO PRN (22:15)
[2022-12-11] MEDS: diazePAM 5 MG TABLET PO PRN (05:40)
[2022-12-11] MEDS ORDERED: METHADONE PO SCH (06:00)
[2022-12-11] MEDS ORDERED: methaDONE HCL 10 MG TABLET PO SCH (06:00)
[2022-12-11] MEDS: TAMSULOSIN HCL 0.4 MG CAP PO SCH (09:08)
[2022-12-11] MEDS: PRENATAL VITAMINS W/ FOLIC ACID TABLET (FP) PO SCH (10:16)
[2022-12-11] MEDS: amLODIPine BESYLATE 10 MG TABLET (FP) PO SCH (10:17)
[2022-12-11] MEDS: LISINOPRIL 20 MG TABLET PO SCH (10:17)
[2022-12-11] MEDS: METOPROLOL TARTRATE 25 MG TABLET (FP) PO SCH ×2 (10:17→22:08)
[2022-12-11 12:36] LABS: HEMATOCRIT 47.5 % (35.4-49); HEMOGLOBIN 15.7 GM/dL (11.7-16.9); MCH 28.2 pg (25.7-33.7); MCHC 33.2 g/dl (32.0-35.9); MEAN PLT VOLUME 9.5 fl (7.5-11.1); PLATELET COUNT 212 10^3/uL (134-434); RBC 5.58 M/mm3 (4.00-5.60); RDW 13.3 % (11.9-15.9); WHITE BLOOD COUNT 8.6 K/mm3 (4.0-10.0)
[2022-12-11 12:42] LABS: POTASSIUM 3.9 mmol/L (3.5-5.1)
[2022-12-11 12:44] LABS: ALBUMIN 4.4 g/dl (3.4-5.0); BLOOD UREA NITROGEN 31.1 mg/dL (7-18); CALCIUM 10.3 mg/dL (8.5-10.1)
[2022-12-11 12:47] LABS: CREATININE 1.2 mg/dL (0.55-1.3)
[2022-12-11 12:49] LABS: BILIRUBIN,TOTAL 1.3 mg/dL (0.2-1); TOT PROT 8.5 g/dl (6.4-8.2)
[2022-12-11] MEDS ORDERED: methaDONE HCL 40 MG DISPERSABLE TABLET PO SCH (12:50)
[2022-12-11 16:59] VITALS: RESP 16
[2022-12-11] MEDS: MELATONIN 5 MG TABLETS PO SCH (22:08)
[2022-12-11] MEDS: THIAMINE HCL 100 MG TABLET (FP) PO SCH (22:08)
[2022-12-12] MEDS ORDERED: METHADONE PO SCH (06:00)
[2022-12-12] MEDS: TAMSULOSIN HCL 0.4 MG CAP PO SCH (08:52)
[2022-12-12 09:32] VITALS: BP 133/70; PULSE 62; TEMP 98.3
[2022-12-12] MEDS: PRENATAL VITAMINS W/ FOLIC ACID TABLET (FP) PO SCH (10:20)
[2022-12-12] MEDS: METOPROLOL TARTRATE 25 MG TABLET (FP) PO SCH (10:21)
[2022-12-12] MEDS: LISINOPRIL 20 MG TABLET PO SCH (10:21)
[2022-12-12] MEDS: amLODIPine BESYLATE 10 MG TABLET (FP) PO SCH (10:21)
== END 2022-12-12 12:25 | disposition other institution (70) | DRG 773 ==
LOC: YASAS 08:16 → Y3N 09:17
PROVIDERS: ADMIT Allergy & Immunology; ATTEND Surgery
PROC: HZ2ZZZZ Detoxification Services for Substance Abuse Treatment (ICD-10-PCS; principal; 2022-12-10)
DX: F11.20 Opioid dependence, uncomplicated (principal); F10.20 Alcohol dependence, uncomplicated; F17.210 Nicotine dependence, cigarettes, uncomplicated; I10 Essential (primary) hypertension; J45.909 Unspecified asthma, uncomplicated; N40.0 Benign prostatic hyperplasia without lower urinary tract symptoms
CPT/HCPCS: 36415; 80053; 85027; 86780; 87635; 87811